=== PATIENT | female | born 1980 | race Caucasian/White ===

== ENCOUNTER → 2017-10-06 16:46 | Outpatient (CLI) | payer OTHER, SELFPAY ==
--- NOTE | 2017-10-06 16:47 | US_ITS ---
STUDY: SOFT TISSUE NECK ULTRASOUND REASON FOR EXAM: Female, 37 years old. Enlarged lymph nodes TECHNIQUE: Ultrasound evaluation of the thyroid was performed with real-time and static doyle-scale imaging. COMPARISON: None. FINDINGS: Multiple lymph nodes are identified in the neck bilaterally. All maintain normal shape and architecture. Of the 3 nodes measured on the right, 2 are within normal limits of size and the third is marginally enlarged with a long axis measurement of 11 mm. Of the 3 nodes measured on the left, all are moderately enlarged , with long axis measurements of 15, 16, and 13 mm. US/Head/Neck Soft Tissue IMPRESSION: Bilateral neck nodes. Marginal enlargement of a single node on the right with moderate enlargement of 3 nodes on the left. However, all visible nodes demonstrate normal shape and architecture. Electronically Signed: Wai Frost MD at 6:26 EDT Tel , Service support ,
== END ==
PROVIDERS: Visit Provider Surgery
DX: R59.0 Localized enlarged lymph nodes (principal)
CPT/HCPCS: 76536

== ENCOUNTER → 2018-01-31 12:03 | Outpatient (CLI) | payer OTHER, SELFPAY ==
[2018-01-31 12:05] LABS: Bacteria 0 SEEN /hpf (None Seen); Mucous, Urine 0 SEEN /hpf (<or=2+); Red Blood Cells-Urine 0 SEEN /hpf (0-5)
[2018-01-31 12:48] LABS: Color, Urine Yellow (Yellow); Glucose, Dipstick Normal (Normal); Ketone-Dipstick Negative (Negative); Leukocyte Esterase-Dipstick 500 /ul (Negative); Nitrite-Dipstick Negative (Negative); Occult Blood-Urine 10 /ul (Negative); Protein-Dipstick Negative (Negative); Specific Gravity, Urine 1.015 (1.002-1.030); Urine Bilirubin Dipstick Negative (Negative); Urine Clarity Clear (Clear); Urine Urobilinogen Normal (Normal)
[2018-01-31 13:01] LABS: Squamous Epithelial Cells - UA 0-5 SEEN /hpf (5-10); White Blood Cells 0-5 SEEN /hpf (0-5)
== END ==
PROVIDERS: Referring Provider Physician Assistant Surgical; Visit Provider Physician Assistant Surgical
DX: R30.0 Dysuria (principal)
CPT/HCPCS: 81001; 87077; 87086; 87088

== ENCOUNTER → 2018-07-25 12:57 | Outpatient (CLI) | payer OTHER, SELFPAY ==
--- NOTE | 2018-07-25 13:02 | BI_ITS ---
MAMMOGRAPHY - BILATERAL SCREENING REASON FOR EXAM: Female, 38 years old. Routine annual screening examination. PERTINENT HISTORY: Non-contributory. TECHNIQUE: Digital bilateral breast mena (3D mammographic acquisition) in the CC and MLO projections. 2-D mediolateral oblique (MLO) and craniocaudad (CC) views of both breasts were obtained. CAD: Full Field Digital Mammography with Computer Added Detection was performed. COMPARISON: None. Baseline examination. FINDINGS: Breast Composition: The breasts are extremely dense, which lowers the sensitivity of mammography. There are no dominant masses or suspicious calcifications. No other significant abnormalities are identified. BI/SCREENING MAMM (CAD), BILAT IMPRESSION: Stable bilateral screening mammogram. Yearly follow-up mammogram recommended. (A) ASSESSMENT CATEGORY: Approximately 10% of breast cancers are not detected by mammography. A normal mammogram should not delay biopsy of a clinically suspicious abnormality. [id number] Electronically Signed: Carlos Babb, at 15:14 EDT , Service support ,
== END ==
PROVIDERS: Referring Provider Obstetrics & Gynecology; Visit Provider Obstetrics & Gynecology
DX: Z12.31 Encounter for screening mammogram for malignant neoplasm of breast (principal)
CPT/HCPCS: 77063; 77067

== ENCOUNTER → 2018-09-02 09:20 | Outpatient (CLI) | payer OTHER, SELFPAY ==
[2018-01-31 09:44] VITALS: BMI 24.2
[2018-09-02 10:29] LABS: Absolute Lymphocyte Count 2.39 X10^3/ul (0.83-4.51); Absolute Neutrophil Count 3.7 X10^3/uL (2.0-7.7); Basophil# 0.02 X10^3/uL; Basophil% 0.3 % (0-1); Eosinophil# 0.06 X10^3/uL; Eosinophils% 0.9 % (0-5); Hematocrit 38.3 % (37-47); Hemoglobin 12.9 g/dl (12.0-15.0); Lymphocyte # 2.39 X10^3/ul (4.0); Lymphocyte % 35.8 % (19-41); Mean Corp Hgb Conc 33.7 g/gl (32-36); Mean Corpuscular Hgb 29.1 pg (27.0-32.0); Mean Corpuscular Volume 86.5 fL (81-99); Mean Platelet Vol. 9.9 fl (6.2-12.0); Monocyte# 0.49 X10^3/uL; Monocyte% 7.3 % (0-10); Neutrophil # 3.71 X10^3/uL (2.7-7.7); Neutrophil % 55.6 % (47-70); Platelet Count 277 K/mm3 (150-450); RBC Distribution Width CV 13.1 % (11.6-14.6); RBC Distribution Width SD 40.5 fl (35.1-43.9); Red Blood Count 4.43 M/mm3 (4.2-5.4); White Blood Count 6.7 K/mm3 (4.4-11.0)
[2018-09-02 10:36] LABS: POSITIVE COUNT NO; POSITIVE DIFFERENTIAL NO; POSITIVE MORPHOLOGY NO
[2018-09-02 10:46] LABS: ALB/GLOB Ratio 1.1 RATIO (0.9-2.4); AST(SGOT) 10 U/L (15-37); Alanine Aminotransfer ALT/SGPT 15 U/L (13-56); Albumin, Serum 3.7 g/dL (3.2-5.0); Alkaline Phosphatase 61 U/L (45-117); Anion Gap 8 (5-15); BUN 10 mg/dL (7-18); BUN/Creat Ratio 14.2 RATIO (10-20); Calcium,Total 8.4 mg/dL (8.5-10.1); Chloride 107 mmol/L (98-107); Cholesterol 188 mg/dL (200); EST Glomerular Filtration Rate 98 mL/min (>60); Est Glom Filt Rate - Afr Amer 118 mL/min (>60); Globulin 3.4 g/dL (2.2-4.2); Glucose 94 mg/dL (74-106); High Density Lipoprotein 61 mg/dL; Potassium 4.4 mmol/L (3.5-5.1); Protein, Total 7.1 g/dL (6.4-8.2); Sodium Level 140 mmol/L (136-145); Thyroid Stim Hormone (TSH) 1.15 uIU/mL (0.358-3.74); Triglycerides 49 mg/dL; Very Low Density Lipoprotein 10 mg/dL (5-40)
[2018-09-04 09:48] LABS: Vitamin D,25 Hydroxy 17.2 ng/mL (29.95-100.01)
== END ==
PROVIDERS: Family Provider Family Medicine; PCP Family Medicine; Referring Provider Family Medicine; Visit Provider Family Medicine
DX: Z00.00 Encounter for general adult medical examination without abnormal findings (principal); R53.83 Other fatigue
CPT/HCPCS: 36415; 80053; 80061; 82306; 84443; 85025

== ENCOUNTER → 2018-11-14 | Outpatient (CLI) | payer OTHER, SELFPAY ==
--- NOTE | 2018-11-14 10:21 | NEURO ---
NCS and/or EMG Patient Report Ordering Doctor: Brigid Phelan DATE OF SERVICE: 11/14/18 This is a left upper extremity EMG and a bilateral upper extremity nerve conduction study performed on this 38-year-old female who reports numbness and tingling in both hands affecting all of her fingers bilaterally worse on the left side. She is right-handed. Symptoms been present for several years, are worse at night, and are improved with wrist splints. She is healthy otherwise without a history of neck pain, or diabetes. Bilateral upper extremity sensory motor nerve conduction studies performed demonstrating mild to moderate prolongation of the median motor distal latencies with preservation of amplitudes however there is mild asymmetry with reduction of amplitudes relatively speaking on the left side. Conduction velocities are intact. The median sensory responses are also mildly delayed but amplitudes are preserved. The ulnar motor and sensory and radial sensory responses are normal. Left upper extremity needle electromyography is performed. Muscles evaluated included the first dorsal osseous, abductor pollicis brevis, brachioradialis, biceps, triceps and deltoid muscles. All muscles demonstrated normal insertional activity with absence of pathologic spontaneous activity. Motor unit potential recruitment pattern and amplitude is normal in all muscles tested. Impression this is an abnormal elective physiologic study consistent with mild carpal tunnel syndrome bilaterally, somewhat worse on the left side. There is no evidence of radiculopathy.
== END | disposition home or self-care (01) ==
LOC: PSN 06:54
PROVIDERS: Family Provider Family Medicine; PCP Family Medicine; Referring Provider Family Medicine; Visit Provider Family Medicine
DX: G56.03 Carpal tunnel syndrome, bilateral upper limbs (principal)
CPT/HCPCS: 95886; 95913

== ENCOUNTER → 2019-07-18 07:58 | Outpatient (CLI) | payer OTHER, SELFPAY ==
[2019-06-18 08:12] VITALS: BMI 24.2
--- NOTE | 2019-07-18 13:22 | NEURO_ITS ---
NCS and/or EMG Patient Report Ordering Doctor: Caio Reece DATE OF SERVICE: 07/18/19 Adeola Klein is a 39 year old female presents for electrodiagnostic testing of the upper limbs. She complains of numbness and tingling in both hands, worse on the left side. Electrodiagnostic findings: Median motor nerve demonstrates normal distal latency, amplitude and conduction velocity bilaterally. Ulnar motor response is normal bilaterally, including conduction across the elbow. Normal median and ulnar F waves. Mildly prolonged median sensory latency at the wrist. Left median sensory responses within normal limits. Normal ulnar and radial sensory responses. On needle EMG, all muscles tested in the upper limbs showed no evidence of denervation with normal motor unit action potentials. Electrodiagnostic assessment: This is an essentially normal study in the upper limbs. 1. There is borderline slowing of right median sensory latency at the wrist. In conjunction with a normal median palmar latency, I would not interpret this as a carpal tunnel syndrome. Her responses on the left side are within normal l imits. There is no electrodiagnostic evidence for left-sided carpal tunnel syndrome. I have gone back and reviewed testing, including the raw data, from November 14, 2018. It is my opinion that these numbers were over read and note both median motor and sensory latencies to be within the normal range. Therefore I would classify this is an essentially normal study and not as a carpal tunnel syndrome. If there are any further questions, please not hesitate to contact me.
== END ==
PROVIDERS: PCP Family Medicine; Referring Provider Orthopaedic Surgery; Visit Provider Orthopaedic Surgery
DX: G56.03 Carpal tunnel syndrome, bilateral upper limbs (principal)
CPT/HCPCS: 95886; 95912

== ENCOUNTER → 2020-02-04 | Outpatient (CLI) | payer OTHER, SELFPAY ==
[2020-02-04 07:53] VITALS: BMI 24.2
[2020-02-04 10:18] LABS: Bacteria 0 SEEN /hpf (None Seen)
[2020-02-04 10:32] LABS: Color, Urine Amber (Yellow); Glucose, Dipstick Normal (Normal); Ketone-Dipstick Negative (Negative); Leukocyte Esterase-Dipstick 100 /ul (Negative); Nitrite-Dipstick Positive (Negative); Occult Blood-Urine 10 /ul (Negative); Protein-Dipstick 30 mg/dl (Negative); Urine Clarity Clear (Clear); Urine Urobilinogen 8 mg/dl (Normal)
[2020-02-04 10:44] LABS: Urine Bilirubin Dipstick 6 mg/dL (Negative)
[2020-02-04 10:47] LABS: Red Blood Cells-Urine 0-5 SEEN /hpf (0-5); White Blood Cells 0-5 SEEN /hpf (0-5)
[2020-02-04 10:48] LABS: Mucous, Urine 3+ /hpf (<or=2+); Squamous Epithelial Cells - UA 25-50 SEEN /hpf (5-10)
== END | disposition home or self-care (01) ==
LOC: LABSPEC 09:53
PROVIDERS: PCP Family Medicine; Visit Provider Physician Assistant Surgical
DX: R30.0 Dysuria (principal)
CPT/HCPCS: 81001; 87086; 87088

== ENCOUNTER 2020-05-06 07:44 | Day surgery (SDC) | payer OTHER, SELFPAY ==
[2020-02-04 07:53] VITALS: BMI 24.2
[2020-05-06] VITALS (8 sets, daily range): BP systolic 115–144; BP diastolic 63–96; PULSE 56–89; RESP 16; TEMP 36–37.2; O2SAT 96–100; BMI 30.7
--- NOTE | 2020-05-06 07:55 | PCM.HP.BLA ---
History and Physical Date of Admission: 05/06/20 Intake Intake Visit Reasons: BILAT HANDS Chief Complaint: Bilateral hand pain Is patient in pain?: Yes Allergies albuterol [From Ventolin HFA] Allergy (Mild, Verified 02/04/20 07:52) unknown Penicillins Allergy (Mild, Verified 02/04/20 07:52) rash Medications cholecalciferol (vitamin D3) 25 mcg (1,000 unit) capsule 25 mcg PO DAILY 02/04/20 [History Confirmed 02/04/20] phenazopyridine 100 mg tablet 100 mg PO TID PRN 02/04/20 [History Confirmed 04/11/20] spironolactone 25 mg tablet 75 mg PO QDAY tab 04/11/20 [History Confirmed 04/11/20] [facility] Medical History (Updated 02/04/20 @ 08:01 by Justin SAWYER, PA) Reactive cervical lymphadenopathy (Acute) Acne (Acute) Enlargement of lymph node (Acute) GERD (gastroesophageal reflux disease) (Acute) Interstitial cystitis (Acute) Surgical History No significant past surgical history (Acute) Family History Mother Diabetes Hypertension Thyroid disorder Social History (Updated 04/11/20 @ 09:[address] Caio Reece DO) Smoking Status: Never smoker alcohol intake: never HPI BILAT HANDS: Details: Parts of this documentation were recorded by a scribe, this documentation accurately reflects the service provided and the decisions made by me, Dr. Caio Reece DO 04/11/20 [id number]. DAVE SAEZ is a 40 year old F here today for bilateral hand pain. Patient states that the injections have helped her but the pain usually returns after two months. Patient states that her last injections were on 10/24/19 in her bilateral ulnar nerves. Patient states that she continues to have numbness and tingling in both hands going into all her fingers especially after driving and while trying to sleep. Patient states that she has a sore ache throughout her arm and shoulder that is worse on the left side. Patient states that her head holder strength has weakened as well. Patient states that she tried the elbow splints but could not sleep with them. Patient states that she is also experiencing an involuntary twitch in her left shoulder. Patient denies any family history of neurological diseases. Patient states that her last EMG was in June. Patient would like to discuss surgical options. To recall patient has symptoms of carpal tunnel cubital tunnel on bilateral upper extremities EMGs were read as negative last June however patient has had provocative maneuvers that increase symptoms at both the wrist and elbows in addition she has had complete resolution of symptoms temporarily when injecting separately carpal tunnel resolution of radial digits and cubital tunnel resolution of ulnar digit symptoms. Of note patient notes a twitch in the left shoulder scapular area that is unexplained Ortho Exam General General: Yes no acute distress Neurologic: Yes alert Psychologic: Yes reasonable and appropriate Left Wrist/Hand WRIST: Full range of motion of wrists with good strength with negative Tinel's but reproduction of symptoms with Eloise's and Phalen'sBilateral wrists left worse than rightGood pulses bilaterally Left Elbow ELBOW: Full range of motion of the elbow without crepitation or deformity there is reproduction of symptoms with hyperflexion and direct compression into the ulnar digits of bilateral elbow left worse than right Supplemental Info 07/18/2019 Electrodiagnostic assessment:Read: This is an essentially normal study in the upper limbs. 1. There is borderline slowing of right median sensory latency at the wrist. In conjunction with a normal median palmar latency, I would not interpret this as a carpal tunnel syndrome. Her responses on the left side are within normal limits. There is no electrodiagnostic evidence for left-sided carpal tunnel syndrome. I have gone back and reviewed testing, including the raw data, from November 14, 2018. It is my opinion that these numbers were over read and note both median motor and sensory latencies to be within the normal range. Therefore I would classify this is an essentially normal study and not as a carpal tunnel syndrome. Assessment & Plan Problems 1. Carpal tunnel syndrome, bilateral G56.03 2. Cubital tunnel syndrome, bilateral G56.23 Plan Educated that the orthopedic Clinical provocative tests are positive for bilateral carpal tunnelAnd cubital tunnel syndrome. I cannot explain her twitching in her left shoulder blade and shoulder and discussed possible referral to neurologist for which she declined at this point. We discussed performing a repeat EMG nerve conduction study to confirm electrodiagnostic evidence of condition and rule out peripheral neuropathy for which she deferred.. Educated that the risk of doing theDecompressive surgerieswith a negative EMG is that the surgery may not relieve the symptoms. Patient would like to go ahead with the surgery for the left side for both elbow and the wrist. Educated that the recovery period depends on whether they have to transpose the nerve on the elbow. If ulnar nerve requires transposition there will be an extended recovery with a period of immobilization and limitations postoperatively. She understands that symptoms may not resolve instantly or may not have relief at all Follow up 2 weeks post-op or sooner if pain, swelling, numbness or associated symptoms, or concerns develop. Coding Level of Care Code Off vis,est,level 3 Diagnoses Carpal tunnel syndrome, bilateral G56.03 Cubital tunnel syndrome, bilateral G56.23 I have re-examined the patient. There are no clinical changes since date of exam Procedure Criteria Procedure Type: Elective COVID Risk Discussion: The surgeon/proceduralist and patient have discussed in detail the risk of exposure to and/or potential harm posed by the COVID-19 virus with having a surgery/procedure at this time versus the risk of delaying the surgery/procedure. It is not possible to know either the risk of delaying the surgery or procedure or chance of getting an infection with perfect accuracy, but a joint decision was made between the patient and the surgeon/proceduralist to proceed at this time with the scheduled surgery/procedure as indicated on the consent form.
[2020-05-06 08:24] LABS: Internal QC Validated? YES +Cl - CLEAR BKGD; Pregnancy, Urine Negative Negative
[2020-05-06] MEDS: Lactated Ringers 1,000 ML 100 ML IV (08:31)
[2020-05-06] MEDS: Cefazolin 2 GM in 0.9% Normal Saline 100 ML IV (08:57)
[2020-05-06] MEDS: Bupiv/Epi 0.5% Mpf 30 ML Vial (09:19)
--- NOTE | 2020-05-06 10:24 | DCINST_ITS ---
Discharge Diet: No Restrictions Additional Instructions: Encourage elbow wrist and finger range of motion immediately. Do not lift push or pull with operative extremity. Leave dressing on clean and dry for 48 hours. Then may remove and begin showering with antibacterial soap. Do not submerge completely as in tub pool or pond for 3 weeks postop. May cover with large Band-Aid to avoid stitch irritation. Follow-up in 2 weeks call with any questions or concerns. There are free and to the suture around the elbow do not pull or cut these. Leave Steri-Strips on Allergies/Adverse Reactions: Allergies albuterol [From Ventolin HFA] Allergy (Mild, Verified 05/06/20 07:58) unknown Penicillins Allergy (Mild, Verified 05/06/20 07:58) rash Medications to take at Discharge cholecalciferol (vitamin D3) 25 mcg (1,000 unit) capsule 25 mcg PO DAILY 02/04/20 phenazopyridine 100 mg tablet 100 mg PO TID PRN 02/04/20 spironolactone 25 mg tablet 75 mg PO QDAY tab 04/11/20 Primary Care Physician: Brigid Phelan MD [Primary Care Provider] - Test Results: Test results from this visit will be discussed in further detail at your follow- up appointment, if applicable. Please Follow Up With: Caio Reece DO - 2 weeks
--- NOTE | 2020-05-06 10:26 | OP.PCM_ITS ---
Report of Operation Date of Procedure: 05/06/20 Description of Surgical Findings:: Preoperative diagnosis; left carpal tunnel and left cubital tunnel Postoperative diagnosis; same Procedure: 1. Left open carpal tunnel release 2. Left ulnar nerve decompression Anesthesia: General Tourniquet time; 35 minutes 250 mm Hg Complications: None Indication for procedure; 40-year-old female with long-standing symptoms consistent with carpal tunnel and cubital tunnel syndrome diagnostic injections at the elbow and wrist provided temporary relief with return of symptoms. Risks benefits and alternatives were reviewed including risks of bleeding infection nerve artery tissue damage need for further surgery and continued pain and symptoms, hypersensitivity to scar and Pillar pain, numbness posterior elbow. Procedure: cubital tunnel : the patient was met in the preoperative holding area the operative extremity was identified by both patient and physician and was marked the patient was met by anesthesia and brought back to the operating room and transferred to the operating table in the supine position. Aanesthesia was started. A well-padded tourniquet was placed on the operative upper extremity. The patient was prepped and draped in the usual sterile fashion. A timeout was called to ensure the proper patient procedure and extremity were being contemplated. An Esmarch was used to exsanguinate the extremity. The tourniquet was inflated to 250 mmHg. First we turned our attention to the elbow made a curvilinear skin incision over the path of the ulnar nerve dissection was carried down as full-thickness flaps with blunt dissection to ensure no injury to medial antebrachial cutaneous nerve branches electrocautery was used . the ulnar nerve was reached the nerve was then identified proximally and careful dissection to free it from the surrounding soft tissue was performed until its distal extent splitting of the 2 heads of the FCU nerve was mobilized and proximally up to the medial intermuscular septum and there was no further constrictions proximally. The release was carried out on the dorsal side of the tunnel and when the elbow was brought through range of motion there was no subluxation appreciated the wound was thoroughly irrigated and closed with 3-0 Vicryl subcutaneous stitches and 3- 0 running monocryl stich. Steri-Strips and Xeroform. Carpal tunnel :A midline incision was made with a 15 blade scalpel between the thenar and hypothenar eminence. This was carried down through the skin and subcutaneous tissue. Mustapha retractors were then used, a deep blade scalpel was used to make a deep incision in the palmar aponeurosis. The mustapha retractors were then placed deep to this and the transverse carpal ligament was identified a perforation was made with a scalpel and a Littler scissors were used to complete the release of the transverse carpal ligament distally under direct visualization with the tips facing ulnarly until the perivascular fat was reached. Then turning our attention proximally using a tension slide technique the proximal extent of the transverse carpal ligament was released . There was noted to be [hourglass configuration to the median nerve and hypertrophy of the transverse carpal ligament without other findings]. The wound was thoroughly irrigated and was closed with 4-0 nylon vertical mattress stitches. Dressing was applied in the form of xeroform 4 x 4, web roll and an chadwick wrap from the hand to the axilla.. Tourniquet was let down there is no intraoperative complications patient tolerated the procedure well and was transferred to the PACU. All counts were correct.
== END 2020-05-06 12:16 | disposition home or self-care (01) ==
LOC: SDC 07:45 → AC 07:46
PROVIDERS: Anesthesiology; PCP Family Medicine; Referring Provider Orthopaedic Surgery; Visit Provider Orthopaedic Surgery
PROC: (CPT 64721; principal; 2020-05-06 09:15)
PROC: (CPT 64718; 2020-05-06 09:15)
DX: G56.02 Carpal tunnel syndrome, left upper limb (principal); G56.22 Lesion of ulnar nerve, left upper limb; K21.9 Gastro-esophageal reflux disease without esophagitis; Z87.891 Personal history of nicotine dependence; Z20.822 Contact with and (suspected) exposure to COVID-19
CPT/HCPCS: 01810; 64718; 64721; 81025; 87426; C9803; J7120; J2405

== ENCOUNTER 2020-09-20 06:49 | Emergency (ER) | payer OTHER, SELFPAY ==
[2020-09-20 06:50] VITALS: BMI 24.2
[2020-09-20 06:52] VITALS: BP 134/86; PULSE 73; RESP 20; TEMP 36.8; O2SAT 98; BMI 29.9
--- NOTE | 2020-09-20 07:06 | CT_ITS ---
STUDY: CT ABDOMEN AND PELVIS WITHOUT CONTRAST REASON FOR EXAM: Female, 40 years old. right flank pain RADIATION DOSAGE (If Supplied By Facility): CTDIvol = ( 12.27 ) mGy, DLP = ( 606.96 ) mGycm TECHNIQUE: Transaxial images were obtained from the dome of the diaphragm to the symphysis pubis without oral contrast, and without intravenous contrast. Sagittal and coronal images were reconstructed. Individualized dose optimization techniques were used for this CT. COMPARISON: None. FINDINGS: The visualized lung bases are unremarkable. The visualized portions of the heart are within normal limits. Normal liver. Normal gallbladder and extrahepatic biliary system. Normal spleen. Normal pancreas. Normal bilateral adrenal glands. 3 mm nonobstructing stone in the midsection the right kidney. No hydronephrosis, ureteral stone, or ureteral dilatation. Normal left kidney. Normal visualized stomach. Normal small intestine. Normal colon. The appendix is visualized and appears normal. Normal abdominal aorta. Normal inferior vena cava. Normal retroperitoneum. Normal urinary bladder. Normal abdominal wall. Normal osseous structures. CT/Abdomen/Pelvis without Cont IMPRESSION: 3 mm nonobstructing right renal stone. Electronically Signed: Keaton Zamora MD at 8:00 EDT Tel , Service support ,
[2020-09-20 07:12] LABS: Red Blood Cells-Urine 0 SEEN /hpf (0-5)
[2020-09-20 07:13] LABS: Color, Urine Yellow (Yellow); Glucose, Dipstick Normal (Normal); Ketone-Dipstick 5 mg/dl (Negative); Leukocyte Esterase-Dipstick 100 /ul (Negative); Nitrite-Dipstick Negative (Negative); Occult Blood-Urine 25 /ul (Negative); Protein-Dipstick 30 mg/dl (Negative); Specific Gravity, Urine 1.025 (1.002-1.030); Urine Bilirubin Dipstick Negative (Negative); Urine Clarity Clear (Clear); Urine Urobilinogen Normal (Normal)
--- NOTE | 2020-09-20 07:15 | EDS_ITS ---
HPI History of Present Illness Chief Complaint: Flank Pain Detail of Chief Complaint: Sudden onset of right-sided back pain this morning Informant: patient Onset/Context/Timing Maximum Severity: 8/10 Worsened by: Lying flat or bending forward Associated Symptoms Associated Symptoms: Nausea Narrative Narrative: Patient states that she was awoken by sudden onset of right-sided back pain this morning. Patient describes the pain at times radiating into her right buttock and down her right leg. She denies abdominal pain. Currently rates her pain an 8 out of 10 after taking Motrin this morning. Patient has had some nausea but no vomiting. She denies urinary symptoms. She is never had pain like this before. 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 Patient denies fevers or recent illness. She denies abdominal pain. Patient with remote history of interstitial cystitis but states she is not having a flareup. Prior similar symptoms: No PFSH PFSH Medical History (Updated 09/20/20 @ 08:[address] Kandice Henson DO) Acne Enlargement of lymph node GERD (gastroesophageal reflux disease) Interstitial cystitis Reactive cervical lymphadenopathy Home Medications cholecalciferol (vitamin D3) 25 mcg (1,000 unit) capsule 25 mcg PO DAILY 02/04/20 [History Last Taken Unknown] phenazopyridine 100 mg tablet 100 mg PO TID PRN 02/04/20 [History Last Taken Unknown] cyclobenzaprine 10 mg PO TID PRN #20 tablet 09/20/20 [Rx Last Taken Unknown] hydrocodone-acetaminophen 1 tab PO Q4H PRN PRN 3 Days #14 tablet 09/20/20 [Rx L ast Taken Unknown] naproxen 500 mg PO BID #14 tab 09/20/20 [Rx Last Taken Unknown] Allergy/AdvReac Type Severity Reaction Status Date / Time albuterol [From Ventolin HFA] Allergy Mild unknown Verified 09/20/20 06:50 Penicillins Allergy Mild rash Verified 09/20/20 06:50 Family History Mother Diabetes Hypertension Thyroid disorder Surgical History (Updated 09/20/20 @ 06:51 by Osman Eng) History of carpal tunnel surgery of left wrist No significant past surgical history Social History (Updated 05/19/20 @ 10:[address] Caio Reece DO) Smoking Status: Former smoker alcohol intake: never ROS ROS ED Constitutional Constitutional ED: Reports systems reviewed and no addt'l complaints, except as documented; Denies body ache(s), change in weight or chills Eyes Eyes: Denies acute decrease in peripheral vision, change in vision, double vision or loss of vision ENT ENT ED: Reports none; Denies ear pain, lip swelling, loss taste/smell, neck pain, otalgia or sore throat Cardiovascular Cardiovascular: Reports none; Denies abdominal pain, chest pain with activity, leg edema, lightheadedness, palpitations, rapid heart rate or syncope Respiratory/Chest Respiratory/Chest: Reports none; Denies change in mental status, dry cough, dyspnea, hemoptysis, shortness of breath at rest or shortness of breath with exertion Gastrointestinal Gastrointestinal: Reports none; Denies abdominal pain, change in stool character, diarrhea, hematemesis, hematochezia, melena, rectal bleeding or vomit ing Genitourinary Genitourinary ED: Reports none; Denies abdominal discomfort, anuria, dysuria, genital pain or polyuria Musculoskeletal Musculoskeletal: Reports none and back pain; Denies arthralgias, difficulty walking, extremity pain, muscle weakness or myalgias Integumentary Reports none; Denies abscess or rash Neurologic Neurologic: Reports none; Denies abnormal gait, confusion, focal weakness, frequent falls, headache(s), loss of vision, numbness, paresthesias, radicular pain, vertigo or weakness Psychiatric Psychiatric: Reports systems reviewed and no addt'l complaints, except as documented and none; Denies behavioral changes, confusion, difficulty concentrating, hallucinations, suicidal ideation, tactile hallucinations or visual hallucinations Endocrine Endocrinology: Denies none, cold intolerance, excessive sweating, fatigue or heat intolerance Hematologic/Lymphatic Hematologic/Lymphatic: Reports none; Denies anemia, easy bleeding or easy bruising Allergic/Immunologic Allergic/Immunologic ED: Denies as per HPI, none, lip swelling, mouth swelling, throat swelling, tongue swelling or hives EXAM Physical Exam Const Vital Signs: 09/20/20 06:52 Temperature 98.2 F Temperature Source Oral Pulse Rate 73 Respiratory Rate 20 H Blood Pressure 134/86 H Blood Pressure Mean 102 Pulse Ox 98 Oxygen Delivery Method Room Air Positive well nourished and well developed General Appearance ED: well developed and NAD HEENT Reports TM's clear and moist mucous membranes normocephalic and atraumatic; Negative for trauma or tenderness Tympanic Membrane ED: Yes TM's clear Eyes PERRL and EOMs intact bilaterally General Eye ED: Negative for pale conjunctiva or scleral icterus Neck no lymphadenopathy, supple and no JVD General: Negative for tenderness Chest Wall inspection of chest normal and palpation of chest normal Chest: Negative for tenderness Resp normal respiratory effort and clear to auscultation bilaterally Effort and Inspection: Negative for respiratory distress or pain with movement Auscultation: Negative for rhonchi, wheezes or diminished lung sounds Cardio regular rate, regular rhythm, S1 normal heart sound, S2 normal heart sound and no murmurs Peripheral Pulses: pulses 2+ throughout GI normal to inspection, nondistended, normoactive bowel sounds, soft to palpation, non-tender, non-distended and no masses Back/Spine no CVA tenderness and no thoracic nor lumbar tenderness Back/Spine Narrative: Unable to reproduce patient's pain with palpation of her back. She has no tenderness over the thoracic or lumbar spine. Patient has negative straight leg raises. Deep tendon reflexes are plus 2 out of 4 bilaterally at the patella and Achilles. Patient has normal 5 extension bilaterally. Patient has normal sensation to light touch. Extremity normal to inspection General Extremety ED: Negative for edema General Extremity: Negative for edema Neuro oriented x3, CN's II-XII intact bilaterally, no sensory deficits noted and gait normal Sensorium / Orientation: awake, alert, oriented to person, oriented to place and oriented to time Motor Exam: strength 5/5 throughout and strength abnormal Psych mental status grossly normal Skin no rashes or lesions noted and no wounds MDM MDM MDM Narrative Medical decision making narrative: Initially patient did not want thing for pain. Subsequently she did ask for something and was given morphine and Zofran as well as Flexeril. At this point I suspect likely musculoskeletal etiology of her back pain. Patient will be given a prescription for [place], Flexeril, and naproxen. She is advised to follow-up with her primary care physician in 3 to 5 days. Patient advised to return if worsening pain, weakness in extremities, change in bowel or bladder function, or condition should worsen anyway. Lab Data Attestation: I reviewed the patient's lab results. Labs: Laboratory Results - last 24 hr 09/20/20 09/20/20 09/20/20 07:00 07:18 07:18 WBC 9.8 RBC 4.82 Hgb 13.9 Hct 43.0 MCV 89.2 MCH 28.8 MCHC 32.3 RDW Std Deviation 40.4 RDW Coeff of Xochilt 12.3 Plt Count 322 MPV 9.5 Immature Gran % (Auto) 0.300 Neut % (Auto) 66.0 Lymph % (Auto) 26.4 [place] % (Auto) 5.9 Eos % (Auto) 0.9 Baso % (Auto) 0.5 Absolute Neuts (auto) 6.4 Absolute Lymphs (auto) 2.57 Nucleated RBC % 0 Sodium 138 Potassium 3.7 Chloride 106 Carbon Dioxide 27.0 Anion Gap 5 BUN 12 Creatinine 0.77 Estim Creat Clear Calc 85.64 Est GFR (MDRD) Af Amer 106 Est GFR (MDRD) Non-Af 87 BUN/Creatinine Ratio 15.6 Glucose 107 H Calcium 8.8 Serum , Qual Urine Color Yellow Urine Clarity Clear Urine pH 5.0 Ur Specific [place] 1.025 Urine Protein 30 H Urine Glucose (UA) Normal Urine Ketones 5 H Urine Occult Blood 25 H Urine Nitrite Negative Urine Bilirubin Negative Urine Urobilinogen Normal Ur Leukocyte Esterase 100 H Urine RBC 0 SEEN Urine WBC 0-5 SEEN Ur Squamous Epith Cells 5-10 SEEN Urine Bacteria 4+ Hyaline Casts 0-5 SEEN Urine Mucus 3+ 09/20/20 07:18 WBC RBC Hgb Hct MCV MCH MCHC RDW Std Deviation RDW Coeff of Xochilt Plt Count MPV Immature Gran % (Auto) Neut % (Auto) Lymph % (Auto) [place] % (Auto) Eos % (Auto) Baso % (Auto) Absolute Neuts (auto) Absolute Lymphs (auto) Nucleated RBC % Sodium Potassium Chloride Carbon Dioxide Anion Gap BUN Creatinine Estim Creat Clear Calc Est GFR (MDRD) Af Amer Est GFR (MDRD) Non-Af BUN/Creatinine Ratio Glucose Calcium Serum , Qual NEGATIVE Urine Color Urine Clarity Urine pH Ur Specific [place] Urine Protein Urine Glucose (UA) Urine Ketones Urine Occult Blood Urine Nitrite Urine Bilirubin Urine Urobilinogen Ur Leukocyte Esterase Urine RBC Urine WBC Ur Squamous Epith Cells Urine Bacteria Hyaline Casts Urine Mucus Radiography Diagnostic Testing: Radiology Impression Abdomen/Pelvis CT 09/20/20 07:06 IMPRESSION: 3 mm nonobstructing right renal stone. Electronically Signed: Keaton Zamora MD at 8:00 EDT Tel , Service support , Discharge Plan Triage Chief Complaint: Flank Pain ED Provider: Kandice Henson Dx/Rx/DC Orders Clinical Impression: Back pain Instructions: ED Back Pain (Acute or Chronic) Prescriptions: New cyclobenzaprine [cyclobenzaprine] 10 MG tablet 10 mg PO TID PRN (Reason: Muscle Spasm) Qty: 20 RF: 0 hydrocodone-acetaminophen [hydrocodone-acetaminophen] 1 TABLET tablet 1 tab PO Q4H PRN PRN (Reason: Pain) 3 Days Qty: 14 RF: 0 naproxen 500 MG tablet 500 mg PO BID Qty: 14 RF: 0 No Action cholecalciferol (vitamin D3) 25 mcg (1,000 unit) capsule 25 mcg PO DAILY RF: 0 phenazopyridine [Pyridium] 100 mg tablet 100 mg PO TID PRN (Reason: Bladder Spasm) RF: 0 Primary Care Provider: Brigid Phelan Referrals: Brigid Phelan MD [Primary Care Provider] - 3-5 Days Disposition Disposition: Home, self care
[2020-09-20 07:20] LABS: Bacteria 4+ /hpf (None Seen); Hyaline Cast 0-5 SEEN /lpf (0-5); Mucous, Urine 3+ /hpf (<or=2+); Squamous Epithelial Cells - UA 5-10 SEEN /hpf (5-10); White Blood Cells 0-5 SEEN /hpf (0-5)
[2020-09-20 07:23] LABS: Absolute Lymphocyte Count 2.57 X10^3/uL (0.83-4.51); Absolute Neutrophil Count 6.4 X10^3/uL (2.0-7.7); Basophil# 0.05 X10^3/uL; Basophil% 0.5 % (0-1); Eosinophil# 0.09 X10^3/uL; Eosinophils% 0.9 % (0-5); Hemoglobin 13.9 g/dL (12.0-15.0); Lymphocyte # 2.57 X10^3/ul (0.83-4.51); Lymphocyte % 26.4 % (19-41); Mean Corp Hgb Conc 32.3 g/dL (32-36); Mean Corpuscular Hgb 28.8 pg (27.0-32.0); Mean Corpuscular Volume 89.2 fL (81-99); Mean Platelet Vol. 9.5 fl (6.2-12.0); Monocyte# 0.58 X10^3/uL; Monocyte% 5.9 % (0-10); NRBC Flagged by Analyzer 0 % (0-5); Neutrophil # 6.43 X10^3/uL (2.7-7.7); Platelet Count 322 K/mm3 (150-450); RBC Distribution Width CV 12.3 % (11.6-14.6); RBC Distribution Width SD 40.4 fl (35.1-43.9); Red Blood Count 4.82 M/mm3 (4.2-5.4); White Blood Count 9.8 K/mm3 (4.4-11.0)
[2020-09-20 07:39] LABS: Internal QC Validated? YES +Cl - CLEAR BKGD; Pregnancy, Serum, hCG Quali. NEGATIVE Negative
[2020-09-20 07:41] LABS: Anion Gap 5 (5-15); BUN 12 mg/dL (7-18); BUN/Creat Ratio 15.6 RATIO (10-20); Calcium,Total 8.8 mg/dL (8.5-10.1); Chloride 106 mmol/L (98-107); Creatinine, Serum 0.77 mg/dL (0.55-1.02); EST Glomerular Filtration Rate 87 mL/min (>60); Est Glom Filt Rate - Afr Amer 106 mL/min (>60); Estimated Creatinine Clearance 85.64 ml/min; Glucose 107 mg/dL (74-106); Potassium 3.7 mmol/L (3.5-5.1); Sodium Level 138 mmol/L (136-145)
[2020-09-20] MEDS: 0.9% Normal Saline 1,000 ML 1000 ML IV (07:53)
[2020-09-20] MEDS: Ondansetron 4 MG/2 ML Vial IV (08:04)
[2020-09-20] MEDS: Morphine 4 MG/ML Syringe IV (08:04)
[2020-09-20] MEDS: cycloBENZAPRine HCl 10 MG Tablet PO (08:04)
[2020-09-20 08:26] VITALS: BP 132/84; PULSE 72; RESP 16; O2SAT 98
== END 2020-09-20 08:29 | disposition home or self-care (01) ==
PROVIDERS: Emergency Provider Emergency Medicine; PCP Family Medicine
DX: M54.9 Dorsalgia, unspecified (principal); K21.9 Gastro-esophageal reflux disease without esophagitis; Z87.891 Personal history of nicotine dependence
CPT/HCPCS: 74176; 80048; 81001; 84703; 85025; 96361; 96374; 96375; 99284; J7030; A4216; J2405

== ENCOUNTER → 2021-01-27 08:57 | Outpatient (CLI) | payer OTHER, SELFPAY ==
--- NOTE | 2021-01-27 09:15 | RAD_ITS ---
STUDY: X-RAY - LUMBAR SPINE REASON FOR EXAM: Female, 40 years old. Chronic back pain. TECHNIQUE: 5 view(s) of the lumbar spine were obtained. COMPARISON: None FINDINGS: Normal lumbar lordosis. There is no substantial scoliosis. 4 mm of anterolisthesis of L3 on L4. Mild diffuse facet sclerosis. Normal vertebral bodies and endplates. Normal disc space heights. 3 mm in diameter calcification projected over the midpole of the right kidney. Vascular calcification. RAD/L/S Spine Min 4 Views IMPRESSION: Mild diffuse lumbosacral spondylosis as described. Electronically Signed: Salazar Blunt MD at 10:53 EDT , Service support ,
== END ==
PROVIDERS: PCP Family Medicine; Referring Provider Family Medicine; Visit Provider Family Medicine
DX: M54.50 Low back pain, unspecified (principal)
CPT/HCPCS: 72110

== ENCOUNTER → 2021-01-29 11:23 | Outpatient (CLI) | payer OTHER, SELFPAY ==
--- NOTE | 2021-01-29 11:25 | BI_ITS ---
MAMMOGRAPHY - BILATERAL SCREENING 3-D TOMOSYNTHESIS REASON FOR EXAM: Female, 40 years old. Z12.31 SCREENING PERTINENT HISTORY: No significant family history. TECHNIQUE: 2-D mammograms and 3-D Tomosynthesis of the breast (s) were performed. CAD was performed. COMPARISON: 07/25/2018 FINDINGS: The breast composition is Extermely dense tissue. Scattered benign calcifications are seen. No dense spiculated masses or suspicious microcalcifications are identified. No architectural distortion is identified. There is no skin thickening or retraction. There has been no significant change since the prior study. BI/SCRN MAMM (CAD)W/ERICK BILAT IMPRESSION: No mammographic signs of malignancy. Routine yearly mammograms recommended. ASSESSMENT CATEGORY: BIRADS Category 1: Negative. A letter regarding these results will be sent to the patient by the facility within 30 days. FOLLOW UP RECOMMENDATION: Yearly follow up mammogram recommended. (A) Approximately 10% of breast cancers are not detected by mammography. A normal mammogram should not delay biopsy of a clinically suspicious abnormality. Electronically Signed: Keaton Zamora MD at 12:23 EDT Tel , Service support ,
== END ==
PROVIDERS: PCP Family Medicine; Referring Provider Nurse Practitioner Family; Visit Provider Nurse Practitioner Family
DX: Z12.31 Encounter for screening mammogram for malignant neoplasm of breast (principal)
CPT/HCPCS: 77063; 77067

== ENCOUNTER 2022-01-27 12:26 | Emergency (ER) | payer OTHER, SELFPAY ==
[2022-01-27] VITALS (8 sets, daily range): BP systolic 128–162; BP diastolic 83–104; PULSE 64–97; RESP 14–18; TEMP 36.8; O2SAT 95–100; BMI 29.8
[2022-01-27 13:12] LABS: Absolute Lymphocyte Count 4.36 X10^3/uL (0.83-4.51); Absolute Neutrophil Count 6.3 X10^3/uL (2.0-7.7); Basophil# 0.08 X10^3/uL; Basophil% 0.7 % (0-1); Eosinophil# 0.43 X10^3/uL; Eosinophils% 3.6 % (0-5); Hematocrit 40.3 % (37-47); Hemoglobin 13.4 g/dL (12.0-15.0); Lymphocyte # 4.36 X10^3/ul (0.83-4.51); Mean Corp Hgb Conc 33.3 g/dL (32-36); Mean Corpuscular Hgb 29.8 pg (27.0-32.0); Mean Corpuscular Volume 89.8 fL (81-99); Mean Platelet Vol. 9.5 fl (6.2-12.0); Monocyte# 0.63 X10^3/uL; Monocyte% 5.3 % (0-10); NRBC Flagged by Analyzer 0 % (0-5); Neutrophil # 6.26 X10^3/uL (2.7-7.7); Neutrophil % 53.1 % (47-70); Platelet Count 324 K/mm3 (150-450); RBC Distribution Width CV 12.7 % (11.6-14.6); RBC Distribution Width SD 41.7 fl (35.1-43.9); Red Blood Count 4.49 M/mm3 (4.2-5.4); White Blood Count 11.8 K/mm3 (4.4-11.0)
--- NOTE | 2022-01-27 13:15 | RAD_ITS ---
EXAM: XR CHEST, 1 VIEW CLINICAL INDICATION: chest pain TECHNIQUE: Frontal view of the chest. This report was created using [employer] report generation technology. COMPARISON: None. FINDINGS: LUNGS AND PLEURAL SPACES: Unremarkable. No consolidation or edema. No pneumothorax. No effusion. HEART: Unremarkable. Cardiac silhouette not enlarged. MEDIASTINUM: Central airways and mediastinal contour are unremarkable. BONES/JOINTS: Unremarkable. SOFT TISSUES: Unremarkable. RAD/Chest 1 View (Portable) IMPRESSION: No radiographic evidence of acute cardiopulmonary disease. Electronically Signed: Dayton Harris MD at 13:32 EDT ,
--- NOTE | 2022-01-27 13:27 | EDS_ITS ---
HPI History of Present Illness Chief Complaint: Chest Pain Narrative Narrative: 41-year-old female presenting with chest pain. She states it is a slight squeezing its in her left upper chest. She states this has been ongoing for 2 days. The sensation lasts about a minute and then goes away. It seems to be occurring more frequently for her. She is not having lightheadedness, dizziness, nausea, diaphoresis. She is not short of breath. She still had a fever, chills, cough. She states she is eating and drinking normally. She states she does not have any significant medical problems except for history of asthma which is controlled and some back problems. Patient states she does not have a family history of early heart disease. She has no risk factors for DVT/PE and no history. PFSH PFSH Medical History Acne Enlargement of lymph node GERD (gastroesophageal reflux disease) Interstitial cystitis Reactive cervical lymphadenopathy Home Medications cholecalciferol (vitamin D3) 25 mcg (1,000 unit) capsule 25 mcg PO DAILY 02/04/20 [History Last Taken Unknown] phenazopyridine 100 mg tablet (Pyridium) 100 mg PO TID PRN Bladder Spasm 02/04/20 [History Last Taken Unknown] Allergy/AdvReac Type Severity Reaction Status Date / Time albuterol [From Ventolin HFA] Allergy Mild unknown Verified 01/27/22 12:32 Penicillins Allergy Mild rash Verified 01/27/22 12:32 Family History Mother Diabetes Hypertension Thyroid disorder Surgical History History of carpal tunnel surgery of left wrist No significant past surgical history Social History Smoking Status: Former smoker alcohol intake: never ROS ROS ED Constitutional Constitutional ED: Denies chills or fever(s) Eyes Eyes: Denies blurry vision ENT ENT ED: Denies rhinorrhea or sore throat Cardiovascular Cardiovascular: Reports as per HPI Respiratory/Chest Respiratory/Chest: Denies cough or dyspnea Gastrointestinal Gastrointestinal: Denies abdominal pain or constipation Genitourinary Genitourinary ED: Denies dysuria or hematuria Musculoskeletal Musculoskeletal: Denies arthralgias or back pain Integumentary Denies abscess or Abrasions Neurologic Neurologic: Denies headache(s) or paresthesias Psychiatric Psychiatric: Denies anxiety or depression EXAM Physical Exam Const Vital Signs: 01/27/22 12:27 01/27/22 12:30 01/27/22 12:30 Temperature 98.2 F 98.2 F Temperature Source Oral Oral Pulse Rate 97 97 Respiratory Rate 16 16 Respiratory Effort Normal Non-Labored Blood Pressure 162/104 H 162/104 H Blood Pressure Mean 123 123 Pulse Ox 100 100 Oxygen Delivery Method Room Air Room Air 01/27/22 12:58 01/27/22 13:39 Temperature Temperature Source Pulse Rate 74 Respiratory Rate 14 Respiratory Effort Blood Pressure 149/83 H Blood Pressure Mean 105 Pulse Ox 98 99 Oxygen Delivery Method Room Air Room Air Positive well nourished General Appearance ED: NAD; Negative for pallor HEENT Reports moist mucous membranes normocephalic and atraumatic Eyes PERRL and EOMs intact bilaterally Neck no lymphadenopathy Chest Wall inspection of chest normal and palpation of chest normal Resp normal respiratory effort and clear to auscultation bilaterally Auscultation: Negative for rales, rhonchi or wheezes Cardio regular rate and regular rhythm Extremity normal to inspection General Extremety ED: Negative for edema or tenderness General Extremity: Negative for edema Neuro oriented x3 and CN's II-XII intact bilaterally Sensorium / Orientation: awake and alert Motor Exam: strength 5/5 throughout Psych mental status grossly normal Skin no rashes or lesions noted General Skin Exam: Negative for jaundice or pallor Heart Score History: Slightly/Non-Suspicious ECG: Normal Age: </= 45 years Risk Factors: No Risk Factors Troponin: </= Normal Limit Score: 0 MDM MDM MDM Narrative Medical decision making narrative: Patient presenting with intermittent chest tightness. She states it feels like squeezing. Last about a minute. She has no cardiac history. EKG obtained on arrival and on my interpretation shows normal sinus rhythm with a ventricular rate of 70 bpm without sign of ischemic change or dysrhythmia. Chest x-ray on my interpretation shows no acute cardiopulmonary process and the radiologist does agree. CBC shows a slight leukocytosis of 11.8 however the rest of her CBC is normal. Renal function electrolytes normal. High-sensitivity troponin is 3. Patient is PERC negative. High-sensitivity troponin at 2 hours is 3 and the refore unchanged. HEART score is 0. Given her ultimately negative work-up I feel she stable to be discharged home. I counseled her she does need follow-up with her PCP to ensure resolution of the symptoms. Return precautions were discussed. Impression: 1. Chest pain Lab Data Attestation: I reviewed the patient's lab results. Labs: Laboratory Results - last 24 hr 01/27/22 01/27/22 01/27/22 12:30 12:30 15:32 WBC 11.8 H RBC 4.49 Hgb 13.4 Hct 40.3 MCV 89.8 MCH 29.8 MCHC 33.3 RDW Std Deviation 41.7 RDW Coeff of Xochilt 12.7 Plt Count 324 MPV 9.5 Immature Gran % (Auto) 0.300 Neut % (Auto) 53.1 Lymph % (Auto) 37.0 [place] % (Auto) 5.3 Eos % (Auto) 3.6 Baso % (Auto) 0.7 Absolute Neuts (auto) 6.3 Absolute Lymphs (auto) 4.36 Nucleated RBC % 0 Sodium 139 Potassium 3.6 Chloride 107 Carbon Dioxide 26.0 Anion Gap 6 BUN 15 Creatinine 0.76 Estim Creat Clear Calc 99.75 Est GFR (MDRD) Af Amer 106 Est GFR (MDRD) Non-Af 88 BUN/Creatinine Ratio 19.7 Glucose 101 Calcium 9.1 Troponin I High Sens 3 3 Radiography Diagnostic Testing: Clinical Impression(s) from Imaging Studies Chest X-Ray 01/27/22 13:15 IMPRESSION: No radiographic evidence of acute cardiopulmonary disease. Electronically Signed: Dayton Harris MD at 13:32 EDT , Discharge Plan Triage Chief Complaint: Chest Pain ED Provider: Eliot Orozco Dx/Rx/DC Orders Prescriptions: No Action cholecalciferol (vitamin D3) 25 mcg (1,000 unit) capsule 25 mcg PO DAILY phenazopyridine [Pyridium] 100 mg tablet 100 mg PO TID PRN (Reason: Bladder Spasm) Primary Care Provider: Brigid Phelan Referrals: Brigid Phelan MD [Primary Care Provider] -
[2022-01-27 13:32] LABS: Anion Gap 6 (5-15); BUN 15 mg/dL (7-18); BUN/Creat Ratio 19.7 RATIO (10-20); Calcium,Total 9.1 mg/dL (8.5-10.1); Chloride 107 mmol/L (98-107); Creatinine, Serum 0.76 mg/dL (0.55-1.02); EST Glomerular Filtration Rate 88 mL/min (>60); Est Glom Filt Rate - Afr Amer 106 mL/min (>60); Estimated Creatinine Clearance 99.75 ml/min; Glucose 101 mg/dL (74-106); Potassium 3.6 mmol/L (3.5-5.1); Sodium Level 139 mmol/L (136-145); Troponin-I HS (w/2H Reflex) 3 pg/mL (3.0-54.0)
[2022-01-27 15:09] LABS: Reflex Troponin-HS? (from REC) Y
[2022-01-27 15:58] LABS: Troponin-I HS 3 pg/mL (3.0-54.0)
== END 2022-01-27 16:12 | disposition home or self-care (01) ==
PROVIDERS: Emergency Provider Student in an Organized Health Care Education/Training Program; PCP Family Medicine; Visit Provider Student in an Organized Health Care Education/Training Program
DX: R07.9 Chest pain, unspecified (principal); R50.9 Fever, unspecified; Z87.891 Personal history of nicotine dependence
CPT/HCPCS: 71045; 80048; 84484; 85025; 93005; 99284; A4216

== ENCOUNTER → 2022-02-18 | Outpatient (CLI) | payer OTHER, SELFPAY ==
[2022-02-18 08:57] LABS: Absolute Lymphocyte Count 2.46 X10^3/uL (0.83-4.51); Absolute Neutrophil Count 3.9 X10^3/uL (2.0-7.7); Basophil# 0.07 X10^3/uL; Basophil% 0.9 % (0-1); Eosinophil# 0.63 X10^3/uL; Eosinophils% 8.3 % (0-5); Hematocrit 38.6 % (37-47); Hemoglobin 12.9 g/dL (12.0-15.0); Lymphocyte # 2.46 X10^3/ul (0.83-4.51); Lymphocyte % 32.2 % (19-41); Mean Corp Hgb Conc 33.4 g/dL (32-36); Mean Corpuscular Hgb 29.9 pg (27.0-32.0); Mean Corpuscular Volume 89.4 fL (81-99); Mean Platelet Vol. 9.5 fl (6.2-12.0); Monocyte# 0.56 X10^3/uL; Monocyte% 7.3 % (0-10); NRBC Flagged by Analyzer 0 % (0-5); Neutrophil % 51.2 % (47-70); Platelet Count 300 K/mm3 (150-450); RBC Distribution Width CV 12.7 % (11.6-14.6); RBC Distribution Width SD 41.6 fl (35.1-43.9); Red Blood Count 4.32 M/mm3 (4.2-5.4); White Blood Count 7.6 K/mm3 (4.4-11.0)
[2022-02-18 09:41] LABS: ALB/GLOB Ratio 1.1 RATIO (0.9-2.4); AST(SGOT) 12 U/L (15-37); Alanine Aminotransfer ALT/SGPT 21 U/L (13-56); Albumin, Serum 3.7 g/dL (3.2-5.0); Alkaline Phosphatase 56 U/L (45-117); Anion Gap 4 (5-15); BUN 9 mg/dL (7-18); BUN/Creat Ratio 13.4 RATIO (10-20); Calcium,Total 8.7 mg/dL (8.5-10.1); Chloride 108 mmol/L (98-107); Cholesterol 219 mg/dL (200); Creatinine, Serum 0.67 mg/dL (0.55-1.02); EST Glomerular Filtration Rate 101 mL/min (>60); Est Glom Filt Rate - Afr Amer 122 mL/min (>60); Globulin 3.3 g/dL (2.2-4.2); Glucose 104 mg/dL (74-106); High Density Lipoprotein 68 mg/dL; Potassium 3.9 mmol/L (3.5-5.1); Sodium Level 141 mmol/L (136-145); Thyroid Stim Hormone (TSH) 1.29 uIU/mL (0.358-3.74); Triglycerides 65 mg/dL; Very Low Density Lipoprotein 13 mg/dL (5-40)
== END | disposition home or self-care (01) ==
LOC: LAB 07:36
PROVIDERS: PCP Family Medicine; Referring Provider Family Medicine; Visit Provider Family Medicine
DX: Z00.00 Encounter for general adult medical examination without abnormal findings (principal); R63.5 Abnormal weight gain; R07.9 Chest pain, unspecified; E55.9 Vitamin D deficiency, unspecified
CPT/HCPCS: 36415; 80053; 80061; 82306; 84443; 85025

== ENCOUNTER → 2022-03-01 | Outpatient (CLI) | payer OTHER, SELFPAY ==
--- NOTE | 2022-03-01 15:46 | BI_ITS ---
MAMMOGRAPHY - BILATERAL SCREENING REASON FOR EXAM: Female, 41 years old. Routine annual screening examination. PERTINENT HISTORY: Non-contributory. TECHNIQUE: Digital bilateral breast erick (3D mammographic acquisition) in the CC and MLO projections. 2-D mediolateral oblique (MLO) and craniocaudad (CC) views of both breasts were obtained. CAD: Full Field Digital Mammography with Computer Added Detection was performed. COMPARISON: Comparison is made with prior examination dated 01/29/2021 and 07/25/2018. FINDINGS: Breast Composition: The breasts are extremely dense, which lowers the sensitivity of mammography. There are no dominant masses or suspicious calcifications. Stable small benign-appearing bilateral axillary lymph nodes. No other significant abnormalities are identified. There has been no significant change since the prior study. BI/SCRN MAMM (CAD)W/ERICK BILAT IMPRESSION: Stable bilateral screening mammogram. Yearly follow-up mammogram recommended. (A) ASSESSMENT CATEGORY: BIRADS Category 2: Benign. A letter regarding these results will be sent to the patient by the facility within 30 days. Approximately 10% of breast cancers are not detected by mammography. A normal mammogram should not delay biopsy of a clinically suspicious abnormality. [id number] Electronically Signed: Carlos Babb MD at 8:20 EST ,
== END | disposition home or self-care (01) ==
PROVIDERS: PCP Family Medicine; Referring Provider Obstetrics & Gynecology; Visit Provider Obstetrics & Gynecology
DX: Z12.31 Encounter for screening mammogram for malignant neoplasm of breast (principal)
CPT/HCPCS: 77063; 77067

== ENCOUNTER → 2022-03-12 | Outpatient (CLI) | payer OTHER, SELFPAY ==
--- NOTE | 2022-03-12 09:48 | STRESSREP_ITS ---
Stress Test Report Date: 03-12-2020 Procedure: Exercise tolerance test Indications: Chest pain Consent: Per the patient Procedure: The patient exercised on a Gary protocol for 12 minutes completing Stage IV achieving a peak heart rate of 162 bpm (91% predicted maximal heart rate) with a resting blood pressure of 138/70 mmHg and a peak blood pressure 170/68 mmHg and a peak MET capacity of approximately 13 MET's. The baseline ECG demonstrated normal sinus rhythm. The peak exercise ECG demonstrated no obvious ECG changes. There were no cardiac dysrhythmias pretest, during exercise, or recovery. The functional capacity was considered good. The patient had no complaint of chest discomfort during exercise or recovery. The examination was discontinued secondary to dyspnea. Impression: 1. Technically adequate (percent predicted maximal heart rate greater than 85%) exercise tolerance test 2. Peak exercise ECG with no obvious ECG change 3. There were no cardiac dysrhythmias during exercise or recovery This note was generated with [employer] software. It may contain incorrect words, spelling, and punctuation that were not noted in checking the note before signing.
== END | disposition home or self-care (01) ==
PROVIDERS: PCP Family Medicine; Visit Provider Family Medicine
DX: R07.9 Chest pain, unspecified (principal)
CPT/HCPCS: 93017

== ENCOUNTER → 2022-04-28 | Outpatient (CLI) | payer OTHER, SELFPAY ==
--- NOTE | 2022-04-28 15:35 | RAD_ITS ---
STUDY: X-RAY - LUMBAR SPINE REASON FOR EXAM: Female, 42 years old. BACK PAIN TECHNIQUE: XR Spine Lumbar Min 4 Views COMPARISON: 01.27.21 FINDINGS: Normal lumbar lordosis. There is a levoscoliosis of the lumbar spine. There is a Grade 1 anterolisthesis of L3 on L4. There are atherosclerotic vascular calcifications. Normal vertebral bodies and endplates. Normal disc space heights. The soft tissue structures are unremarkable. RAD/L/S Spine Min 4 Views IMPRESSION: There is a Grade 1 anterolisthesis of L3 on L4. Electronically Signed: Matias Fu MD at 19:07 EST ,
== END | disposition home or self-care (01) ==
LOC: RAD 15:26
PROVIDERS: PCP Family Medicine; Referring Provider Family Medicine; Visit Provider Family Medicine
DX: M47.816 Spondylosis without myelopathy or radiculopathy, lumbar region (principal)
CPT/HCPCS: 72110

== ENCOUNTER → 2022-06-09 | Outpatient (CLI) | payer OTHER, SELFPAY ==
--- NOTE | 2022-06-09 07:15 | MRI_ITS ---
PROCEDURE: MRI LUMBAR SPINE WITHOUT CONTRAST REASON FOR EXAM: Female, 42 years old. degenerative spondylolisthesis degenerative spondylolisthesis TECHNIQUE: Standardized fat and water weighted pulse sequences were obtained in the sagittal and axial planes. COMPARISON: X-ray of the lumbar spine dated April 28, 2022. CT of abdomen and pelvis dated September 20, 2020 FINDINGS: Normal lumbar lordosis. Mild levoscoliosis is present. Normal conus medullaris that terminates at the T12 level. No marrow edema or fracture or compression deformity is seen. T12-L1: Normal endplates. Normal disc height, hydration and morphology. Normal bilateral facet joints. Normal central canal and bilateral lateral recesses. Normal bilateral intervertebral neural foramina. L1-2: Normal endplates. Normal disc height, hydration and morphology. Normal bilateral facet joints. Normal central canal and bilateral lateral recesses. Normal bilateral intervertebral neural foramina. L2-3: Normal endplates. Normal disc height, hydration and morphology. Normal bilateral facet joints. Normal central canal and bilateral lateral recesses. Normal bilateral intervertebral neural foramina. L3-4: Diffuse disc desiccation with mild to moderate disc space narrowing resulting in a broad-based disc herniation. Superimposed right paracentral disc protrusion causes moderate right foraminal stenosis with nerve root compression. Mild to moderate left foraminal stenosis with nerve root impingement also noted. Mild facet joint hypertrophy. Mild central canal stenosis. Anterolisthesis of L3 on L4 of less than 2 mm. L4-5: Normal endplates. Mild posterior disc space narrowing with a small shallow proximal right foraminal disc protrusion and annular tear contributing to mild right foraminal stenosis. Normal left neural foramen. Normal bilateral facet joints. Normal central canal and bilateral lateral recesses. L5-S1: Normal endplates. Diffuse disc desiccation. Small benign fatty hemangioma of the L5 vertebral body. Normal disc height and morphology. Mild facet joint hypertrophy. Normal central canal and bilateral lateral recesses. Mild right foraminal stenosis with posterior nerve root impingement. Normal left neural foramen. Normal visualized sacral ala. Normal visualized paraspinous soft tissue structures. MRI/Spine Lumbar (Routine) IMPRESSION: 1. Multilevel degenerative changes, as described above. 2. Multilevel foraminal stenosis 3. Mild central canal stenosis at L3-L4 4. Mild to moderate left foraminal stenosis with nerve root impingement at L3-L4 5. Right foraminal disc protrusion contributing to moderate right foraminal stenosis with nerve root compression at L3-L4 Electronically Signed: Eyal Mi MD at 11:46 EST ,
== END | disposition home or self-care (01) ==
PROVIDERS: PCP Family Medicine; Visit Provider Orthopaedic Surgery
DX: M43.16 Spondylolisthesis, lumbar region (principal)
CPT/HCPCS: 72148

== ENCOUNTER 2022-07-26 07:31 | Day surgery (SDC) | payer OTHER, SELFPAY ==
[2022-07-26] VITALS (7 sets, daily range): BP systolic 115–133; BP diastolic 59–84; PULSE 65–73; RESP 16–18; TEMP 36.1–37.2; O2SAT 95–97; BMI 32.9
[2022-07-26 08:05] LABS: Internal QC Validated? YES +Cl - CLEAR BKGD; Pregnancy, Urine Negative Negative
[2022-07-26] MEDS: Lactated Ringers 1,000 ML 15 ML IV (08:11)
--- NOTE | 2022-07-26 08:57 | RAD_ITS ---
PROCEDURE: Left sacroiliac joint injection. DATE OF EXAMINATION: July 26, 2022. INDICATION: Female, 42 years old. Right-sided pelvic pain. FLUOROSCOPY TIME (if supplied): (9.6 seconds) minutes/seconds. 2.71 mGy RAD/Fluoro Guided Needle Placement IMPRESSION: Intraoperative imaging provided for left sacroiliac joint injection. Electronically Signed: Carlos Babb MD at 10:18 EDT ,
[2022-07-26] MEDS: MethylPREDNISolone Acetate 80 MG/ML Vial (08:59)
[2022-07-26] MEDS: Lidocaine 1% (5 ml sdv) 5 ML Vial (08:59)
--- NOTE | 2022-07-26 09:37 | OP.PCM_ITS ---
Report of Operation Date of Procedure: 07/26/22 Description of Surgical Findings:: PREOPERATIVE DIAGNOSES: 1. Sacroiliitis. 2. Sacroiliac joint dysfunction. POSTOPERATIVE DIAGNOSES: 1. Sacroiliitis. 2. Sacroiliac joint dysfunction. PROCEDURE PERFORMED: Left-sided sacroiliac joint steroid injection under fluoroscopy guidance. ANESTHESIA: MAC. BLOOD LOSS: Minimal. COMPLICATIONS: None. DESCRIPTION OF PROCEDURE: History and physical of today was reviewed. Risks and benefits of the procedure were explained. The patient understood and agreed to the procedure. Informed consent was obtained. IV inserted per routine protocol. The patient was taken to the operating room and placed in the prone position with a pillow positioned underneath the abdomen. The left lower back and buttock area was prepped and draped in a sterile fashion using iodine x3. Under fluoroscopy guidance on an AP view, the left SI joint was visualized. The skin and subcutaneous tissue was anesthetized with approximately 3 mL of 1% lidocaine using a 25-gauge regular needle. Under direct visualization with fluoroscopy at approximately 15-degree angle, using a 22-gauge 3-1/2-inch spinal needle, the needle was advanced via the skin. The tip of the needle was maneuvered and directed towards the inferior one-third of the posterior SI joint. Once the tip of the needle was at the vicinity of the joint, after negative aspiration for blood or CSF, a total of 1 mL of contrast was injected to confirm correct placement of the needle as well as cephalocaudal spread. Confirmation was obtained on AP as well as oblique view. After repeated negativ e aspiration and confirmation, a total of 4 mL of preservative-free 0.25% Marcaine with 40 mg of Depo-Medrol was injected in and around the SI joint. The needle was then removed intact. The patient experienced no sign or symptoms of intrathecal or intravascular injection. The patient experienced no paresthesia. The procedure was completed without any apparent difficulty or any complications. The patient appeared to tolerate it well. ASSESSMENT AND PLAN: This is a 42-year-old female with sacroiliitis, sacroiliac joint dysfunction status post left-sided sacroiliac joint steroid injection under fluoroscopic guidance, patient will continue her current medications, patient will follow approximately 1 to 2 weeks for reevaluation.
== END 2022-07-26 09:53 | disposition home or self-care (01) ==
LOC: SDC 07:32 → AC 07:33
PROVIDERS: Anesthesiology; PCP Family Medicine; Referring Provider Anesthesiology Pain Medicine; Visit Provider Anesthesiology Pain Medicine
PROC: 3E0U3GC Introduction of Other Therapeutic Substance into Joints, Percutaneous Approach (ICD-10-PCS; CPT 27096; principal; 2022-07-26 09:15)
DX: M46.1 Sacroiliitis, not elsewhere classified (principal); M46.96 Unspecified inflammatory spondylopathy, lumbar region; K21.9 Gastro-esophageal reflux disease without esophagitis; M53.3 Sacrococcygeal disorders, not elsewhere classified; M47.27 Other spondylosis with radiculopathy, lumbosacral region; M51.37 Other intervertebral disc degeneration, lumbosacral region; Z79.899 Other long term (current) drug therapy
CPT/HCPCS: 27096; 76000; 77002; 81025; J7120

== ENCOUNTER → 2022-08-13 | Outpatient (CLI) | payer OTHER, SELFPAY ==
[2022-08-13 10:25] LABS: Bacteria 0 SEEN /hpf (None Seen); Mucous, Urine 0 SEEN /hpf (<or=2+); White Blood Cells 0 SEEN /hpf (0-5)
[2022-08-13 10:28] LABS: Color, Urine Yellow (Yellow); Glucose, Dipstick Normal (Normal); Ketone-Dipstick Negative (Negative); Leukocyte Esterase-Dipstick Negative /ul (Negative); Nitrite-Dipstick Negative (Negative); Occult Blood-Urine 10 /ul (Negative); Protein-Dipstick Negative (Negative); Urine Bilirubin Dipstick Negative (Negative); Urine Clarity Clear (Clear); Urine Urobilinogen Normal (Normal)
[2022-08-13 10:35] LABS: Red Blood Cells-Urine 0-5 SEEN /hpf (0-5); Squamous Epithelial Cells - UA 0-5 SEEN /hpf (5-10)
== END | disposition home or self-care (01) ==
LOC: LABSPEC 09:53
PROVIDERS: PCP Family Medicine; Referring Provider Physician Assistant Surgical; Visit Provider Physician Assistant Surgical
DX: N39.0 Urinary tract infection, site not specified (principal)
CPT/HCPCS: 81001; 87086; 87088

== ENCOUNTER 2022-08-23 08:37 | Day surgery (SDC) | payer OTHER, SELFPAY ==
[2022-08-23] VITALS (7 sets, daily range): BP systolic 114–128; BP diastolic 66–84; PULSE 60–63; RESP 16–17; TEMP 36.3–36.8; O2SAT 95–100; BMI 33.8
[2022-08-23 09:16] LABS: Internal QC Validated? YES +Cl - CLEAR BKGD; Pregnancy, Urine Negative Negative
[2022-08-23] MEDS: Lactated Ringers 1,000 ML 15 ML IV (09:19)
--- NOTE | 2022-08-23 09:55 | RAD_ITS ---
PROCEDURE: Caudal block. DATE OF EXAMINATION: August 23, 2022. INDICATION: Female, 42 years old. Chronic low back pain. FLUOROSCOPY TIME (if supplied): (10 seconds) minutes/seconds. 7.43 mGy. One image was submitted. RAD/Fluor Guidance for Spine Inj IMPRESSION: Intraoperative imaging provided for caudal block. Electronically Signed: Carlos Babb MD at 12:49 EDT ,
[2022-08-23] MEDS: Lidocaine 1% (5 ml sdv) 5 ML Vial (10:07)
[2022-08-23] MEDS: MethylPREDNISolone Acetate 80 MG/ML Vial (10:07)
[2022-08-23] MEDS: 0.9% Normal Saline (Pres. free 10 ML Vial (10:08)
--- NOTE | 2022-08-23 10:27 | OP.PCM_ITS ---
Report of Operation Date of Procedure: 08/23/22 Pre-Operative Diagnosis: Lumbosacral radiculopathy, lumbosacral degenerative di sc disease, lumbosacral spinal stenosis Post-Operative Diagnosis: Lumbosacral radiculopathy, lumbosacral degenerative disc disease, lumbosacral spinal stenosis Surgery/Procedure Performed:: Caudal epidural steroid injection under fluoroscopic guidance Type of Anesthesia: MAC Estimated Blood Loss (mL): Minimal Description of Procedure: DESCRIPTION OF PROCEDURE: History and physical of today was reviewed. Risks and benefits of the procedure were explained. The patient understood and agreed to proceed. Informed consent was obtained. IV inserted per routine protocol. The patient was taken to the operating room and placed in the prone position with a pillow positioned underneath the abdomen. The lower back and tailbone area was prepped and draped in a sterile fashion using iodine x3. Under fluoroscopy guidance on a lateral view, the caudal space was identified. The skin and subcutaneous tissue was anesthetized with approximately 3 mL of 1% lidocaine using a 25-gauge regular needle. Under direct visualization with fluoroscopy, using a 22-gauge 3-1/2-inch spinal needle, the needle was advanced via the skin through the sacral hiatus. The tip of the needle was passed through the sacrococcygeal ligament and advanced to approximately S4 area. After negative aspiration of blood or CSF, a total of 3 mL of contrast was injected to confirm correct placement of the needle as well as cephalad spread. The spread was followed to approximately L5 area. After confirmation on AP as well as lateral view and repeated negative aspiration, a total of 15 mL of preservative-free 0.125% Marcaine with 80 mg of Depo-Medrol was injected easily. The needle was then removed intact. The patient experienced no sign or symptoms of intrathecal or intravascular injection. The patient experienced no paresthesia. The procedure was completed without any apparent difficulty or any complications. The patient appeared to tolerate it well. ASSESSMENT AND PLAN: This is a 42-year-old female with lumbosacral radiculopathy, lumbosacral degenerative disc disease, lumbosacral spinal stenosis status post caudal epidural steroid injection, patient will continue her current medications, patient will follow in approximately 2 weeks for reevaluation. Complications None
== END 2022-08-23 10:51 | disposition home or self-care (01) ==
LOC: SDC 08:52 → AC 08:59
PROVIDERS: Anesthesiology; PCP Family Medicine; Referring Provider Anesthesiology Pain Medicine; Visit Provider Anesthesiology Pain Medicine
PROC: 3E0S3BZ Introduction of Anesthetic Agent into Epidural Space, Percutaneous Approach (ICD-10-PCS; CPT 62282; principal; 2022-08-23 10:25)
DX: M51.17 Intervertebral disc disorders with radiculopathy, lumbosacral region (principal); M47.27 Other spondylosis with radiculopathy, lumbosacral region; M48.07 Spinal stenosis, lumbosacral region; M53.3 Sacrococcygeal disorders, not elsewhere classified; K21.9 Gastro-esophageal reflux disease without esophagitis; Z79.899 Other long term (current) drug therapy; Z87.891 Personal history of nicotine dependence
CPT/HCPCS: 62323; 01992; 64483; 77003; 81025; J7120; J3490

== ENCOUNTER → 2022-09-27 | Outpatient (CLI) | payer OTHER, SELFPAY ==
--- NOTE | 2022-09-27 16:40 | RAD_ITS ---
INDICATION: PAIN EXAMINATION/TECHNIQUE: X-RAY - XR Hip Unilateral with Pelvis when performed; 2-3 Views COMPARISON: No previous relevant examinations available for comparison. FINDINGS: PELVIC BONES: No displaced fracture, destructive or sclerotic lesions. Note that overlapping bowel shadows may however obscure fine detail. Sacroiliac joints are unremarkable. No widening of the pubic symphysis. HIPS: The articular structures are unremarkable. No displaced fracture seen in this frontal view. Minimal osteophyte formation at the acetabular roof bilaterally. SOFT TISSUES: No soft tissue swelling or gas. RAD/HIP, UNI W/ Pelvis 2-3 Views IMPRESSION: 1. No evidence of displaced pelvic or hip fracture. No acute destructive or sclerotic bony processes. 2. Minimal osteophyte formation involving the acetabular roof bilaterally. Electronically Signed: Keaton Schmitz MD at 17:18 EDT ,
== END | disposition home or self-care (01) ==
LOC: RAD 16:34
PROVIDERS: PCP Family Medicine; Referring Provider Nurse Practitioner Acute Care; Visit Provider Nurse Practitioner Acute Care
DX: M25.552 Pain in left hip (principal); M53.3 Sacrococcygeal disorders, not elsewhere classified
CPT/HCPCS: 73502

== ENCOUNTER → 2022-12-08 | Outpatient (CLI) | payer OTHER, SELFPAY ==
--- NOTE | 2022-12-08 13:17 | US_ITS ---
EXAM: US PELVIS TRANSABDOMINAL, COMPLETE CLINICAL INDICATION: RLQ PAIN TECHNIQUE: Transabdominal pelvic ultrasound was performed with grayscale and color Doppler imaging. COMPARISON: No relevant prior studies available. FINDINGS: UTERUS/CERVIX: Endometrial complex is unremarkable. Anteverted uterus. Uterus measures 10.1 6.2 x 4.6 cm without discrete mass. RIGHT OVARY: Right ovary is normal measuring 2.6 x 2.2 x 2.2 cm with blood flow demonstrated to its. No adnexal masses bilaterally. LEFT OVARY: Left ovary is not visualized potentially due to positioning poor overlying bowel gas. FREE FLUID: No free fluid in the pelvic cul-de-sac. BLADDER: Visualized bladder is unremarkable. US/Pelvic (Non ) IMPRESSION: Left ovary not visualized potentially due to overlying bowel gas or positioning. Otherwise unremarkable exam. Electronically Signed: Baljeet Leger MD at 23:44 EDT ,
== END | disposition home or self-care (01) ==
LOC: US 13:16
PROVIDERS: PCP Family Medicine; Referring Provider Family Medicine; Visit Provider Family Medicine
DX: R10.31 Right lower quadrant pain (principal)
CPT/HCPCS: 76856

== ENCOUNTER 2022-12-13 07:06 | Day surgery (SDC) | payer OTHER, SELFPAY ==
[2022-12-13] VITALS (9 sets, daily range): BP systolic 90–136; BP diastolic 45–80; PULSE 49–68; RESP 12–18; TEMP 36.2–36.5; O2SAT 93–98; BMI 34.9
[2022-12-13 07:34] LABS: Internal QC Validated? YES +Cl - CLEAR BKGD; Pregnancy, Urine Negative Negative
[2022-12-13] MEDS: Lactated Ringers 1,000 ML 15 ML IV (07:37)
--- NOTE | 2022-12-13 08:53 | RAD_ITS ---
EXAMINATION: Fluoroscopic guided lumbar and sacral block. INDICATION: PAIN Total Fluoroscopic Time: 20 seconds AND number of Fluoroscopic Images: 7 OR Radiation dosage index: 12.3 mGy COMPARISON: Lumbar spine radiograph from 05/29/2022 FINDINGS: Limited intraoperative fluoroscopic images from lumbar spine submitted for review. There is intraoperative placement of needles at the L5-S1 levels and along the right sacrum. RAD/Sacrum-Coccyx min 2 Views IMPRESSION: Fluoroscopic guided lumbar and sacral block procedure. Please see intraoperative report for further details. Electronically Signed: Laron Dickerson DO at 11:08 EDT ,
[2022-12-13] MEDS: MethylPREDNISolone Acetate 40 MG/ML Vial IM (09:13)
[2022-12-13] MEDS: Lidocaine 1% (30 ml sdv) 30 ML Vial (09:13)
--- NOTE | 2022-12-13 09:23 | OP.PCM_ITS ---
Report of Operation Date of Procedure: 12/13/22 Description of Surgical Findings:: PROCEDURE: Left-sided lumbosacral radiofrequency ablation of the medial/lateral branch L5- S1, S2, S3 PREOPERATIVE DIAGNOSES: Lumbosacral spondylosis, disorder of the sacrum, sacroiliitis POSTOPERATIVE DIAGNOSES: Lumbosacral spondylosis, disorder of the sacrum, sacroiliitis ANESTHESIA: MAC COMPLICATIONS: None BLOOD LOSS: Minimal PROCEDURE IN DETAIL: History and physical today was reviewed. Risks and benefits of procedure e xplained. The patient understood, agreed to the procedure and informed consent was obtained. IV inserted per routine protocol. The patient was taken to the operating room, placed in the prone position with a pillow positioned underneath the abdomen. The left side of the lower back and buttock area was prepped and draped in a sterile fashion using iodine x 3. Under fluoroscopy guidance, on AP view, the L5 through S3 and sacroiliac joint were visualized. The skin and subcutaneous tissue was anesthetized with approximately 10 mL of 1% lidocaine using a 25-gauge regular needle. Under direct visualization with fluoroscopy at approximately 15-degree angle, starting on the left L5, ending on the left S3, passing through the S1, S2 lateral branch. Using a 22-gauge 10 cm with a 10 mm curved ac tive tip radiofrequency ablation needle, the needle passed through the skin. The tip of the needle was maneuvered and directed towards the superior and medial gutter of the transverse process at the vicinity of the medial branch. The second needle was then maneuvered and directed towards the sacral ala and the third and fourth needle were then directed towards the medial border of the sacroiliac joint at the S2, S3 area. Once the tip of the needle was at the vicinity of the medial branch/lateral branch, the needle pulled approximately 2 mm up the bone. The stylet of each needle was then removed. The radiofrequency ablation probe was then inserted at each level. After confirmation of AP, oblique as well as lateral view, impedance was then recorded at L5 to be 231, at S1 292, at S2 283, at S3 245 ohm. Motor-evoked potential was then initiated to 1.5 volt without any motor response at each corresponding level. The probe was then removed intact and a total of 6 mL of preservative-free 1% lidocaine was injected in divided doses between those 4 levels after negative aspiration of blood with CSF. The radiofrequency ablation probe was then reinserted after confirmation of AP, oblique as well as lateral view. Radiofrequency ablation was then initiated to 80 degrees Celsius for 90 seconds at each level. Once concluded, the probe was then removed intact and a total of 6 mL of preservative-free 0.25% Marcaine with 40 mg Depo-Medrol was injected in divided doses between those 4 levels. The needles were then removed intact. The patient experienced no signs or symptoms of intrathecal, intravascular injection. The patient experienced no paraesthesia. The procedure was completed without any apparent difficulty, any complication. The patient appeared to tolerate well. Sensory as well as motor exam was unchanged from prior to procedure. ASSESSMENT AND PLAN: This is a 42-year-old female with lumbosacral spondylosis, disorder of the sacrum, sacroiliitis, status post left-sided lumbosacral radiofrequency ablation of the medial/lateral branch L5 through S3. The patient will continue their current medications. The patient will follow up in approximately 2 weeks for reevaluation.
== END 2022-12-13 10:35 | disposition home or self-care (01) ==
LOC: SDC 07:06 → AC 07:09
PROVIDERS: Anesthesiology; PCP Family Medicine; Referring Provider Anesthesiology Pain Medicine; Visit Provider Anesthesiology Pain Medicine
PROC: (CPT 64635; principal; 2022-12-13 08:40)
DX: M46.1 Sacroiliitis, not elsewhere classified (principal); M47.817 Spondylosis without myelopathy or radiculopathy, lumbosacral region; K21.9 Gastro-esophageal reflux disease without esophagitis; Z79.899 Other long term (current) drug therapy
CPT/HCPCS: 64635; 64636; 72220; 76000; 81025; J7120

== ENCOUNTER → 2023-01-11 | Outpatient (CLI) | payer OTHER, SELFPAY ==
--- NOTE | 2023-01-11 16:05 | RAD_ITS ---
STUDY: X-RAY - SACROILIAC JOINTS REASON FOR EXAM: Female, 42 years old. Other spondylosis with radiculopathy, lumbosacral region TECHNIQUE: 3 view(s) of the sacroiliac joints were obtained. COMPARISON: None. FINDINGS: Normal bilateral sacroiliac joints. Normal visualized sacral ala and sacrum. There is no demonstrated osseous destructive process. Normal visualized iliac bones. Normal visualized soft tissue structures. RAD/S-I Jts 3 or More Views IMPRESSION: Normal x-ray examination of the bilateral sacroiliac joints. Electronically Signed: Inocente Marsh MD at 22:57 EDT ,
== END | disposition home or self-care (01) ==
LOC: RAD 16:03
PROVIDERS: PCP Family Medicine; Referring Provider Nurse Practitioner Acute Care; Visit Provider Nurse Practitioner Acute Care
DX: M53.3 Sacrococcygeal disorders, not elsewhere classified (principal); M46.96 Unspecified inflammatory spondylopathy, lumbar region; M47.27 Other spondylosis with radiculopathy, lumbosacral region; M51.37 Other intervertebral disc degeneration, lumbosacral region; M25.552 Pain in left hip
CPT/HCPCS: 72202

== ENCOUNTER 2023-02-28 07:28 | Day surgery (SDC) | payer OTHER, SELFPAY ==
[2023-02-28] MEDS: Lactated Ringers 1,000 ML 15 ML IV (07:47)
[2023-02-28 07:48] VITALS: BP 125/89; PULSE 75; RESP 18; TEMP 37.1; O2SAT 98; BMI 34.7
[2023-02-28 07:52] LABS: Internal QC Validated? YES +Cl - CLEAR BKGD; Pregnancy, Urine Negative Negative; Record Kit Lot#,Urine Preg HCG0000667200
--- NOTE | 2023-02-28 08:50 | RAD_ITS ---
STUDY: LEFT L3-L4 AND L4-L5 TRANSFORAMINAL EPIDURAL STEROID INJECTIONS. REASON FOR EXAM: Female, 42 years old. TRANSFORAMINAL EPIDURAL STEROID INJECTIONS L3-4, L4-5, LEFT FLUOROSCOPY TIME (if supplied): ( 11 seconds ) minutes/seconds. 3.18 mGy. 4 images were submitted. FINDINGS: Intraoperative imaging provided for left L3-L4 and L4-L5 transforaminal epidural steroid injection. RAD/Lumbar Spine 2 or 3 Views IMPRESSION: Intraoperative imaging provided for left L3-L4 and L4-L5 transforaminal epidural steroid injection. Electronically Signed: Carlos Babb MD at 10:02 EST ,
[2023-02-28] MEDS: MethylPREDNISolone Acetate 80 MG/ML Vial (08:57)
[2023-02-28] MEDS: Lidocaine 1% (5 ml sdv) 5 ML Vial (08:58)
--- NOTE | 2023-02-28 09:02 | PCM.OPRPT ---
Report of Operation Date of Procedure: 02/28/23 Description of Surgical Findings:: PREOPERATIVE DIAGNOSES: 1. Lumbosacral radiculopathy. 2. Lumbosacral degenerative disk disease. 3. Lumbosacral spinal stenosis. POSTOPERATIVE DIAGNOSES: 1. Lumbosacral radiculopathy. 2. Lumbosacral degenerative disk disease. 3. Lumbosacral spinal stenosis. PROCEDURE PERFORMED: Left-sided lumbar transforaminal epidural steroid injection, L3-4 and L4-5. ANESTHESIA: MAC. BLOOD LOSS: Minimal. COMPLICATIONS: None. DESCRIPTION OF PROCEDURE: History and physical of today was reviewed. Risks and benefits of the procedure were explained. The patient understood and agreed to proceed. Informed consent was obtained. IV inserted per routine protocol. The patient was taken to the operating room and placed in the prone position with a pillow positioned underneath the abdomen. The left side of his lower back was prepped and draped in a sterile fashion using iodine x3. Under fluoroscopy guidance on oblique view, the L3 through L5 vertebral bodies were visualized. The skin and subcutaneous tissue was anesthetized with approximately 5 mL of 1% lidocaine using a 25-gauge regular needle. Under direct visualization with fluoroscopy at approximately 35-degree angle, starting on the left L3, ending on the left L4, using a 22-gauge 5-inch spinal needle, the needle was advanced via the skin. The tip of the needle was maneuvered and directed towards the inferior and medial gutter of the transverse process at the superiormost aspect of the neural foramen. Once the tip of the needle was at the vicinity of the foramen, after negative aspiration for blood or CSF, a total of 1 mL of contrast was injected in divided doses between both levels to confirm correct placement of the needle as well as medial spread. The confirmation was obtained on AP as well as lateral view. After repeated negative aspiration and confirmation on AP as well as lateral view, a total of 6 mL of preservative-free 0.25% Marcaine with 80 mg of Depo-Medrol was injected in divided doses between both levels. The needles were then removed intact. The patient experienced no sign or symptoms of intrathecal or intravascular injection. The patient experienced no paresthesia. The procedure was completed without any apparent difficulty or any complications. The patient appeared to tolerate it well. ASSESSMENT AND PLAN: This is a 42-year-old female with lumbosacral radiculopathy, lumbosacral degenerative disk disease, and lumbosacral spinal stenosis, status post left-sided lumbar transforaminal epidural steroid injection at L3-4 and L4-5. The patient will continue her current medications. The patient will follow up in approximately 2 weeks for reevaluation.
[2023-02-28 09:07] VITALS: BP 111/92; BP 125/89; PULSE 59; RESP 16; TEMP 36.6; O2SAT 98
[2023-02-28 09:10] VITALS: BP 116/72; BP 125/89; PULSE 68; RESP 16; O2SAT 97
[2023-02-28 09:15] VITALS: BP 120/76; BP 125/89; PULSE 63; RESP 16; O2SAT 98
[2023-02-28 09:20] VITALS: BP 125/89; BP 126/73; PULSE 71; RESP 16; TEMP 36.6; O2SAT 100
== END 2023-02-28 09:44 | disposition home or self-care (01) ==
LOC: SDC 07:29 → AC 07:29
PROVIDERS: Anesthesiology; PCP Family Medicine; Referring Provider Anesthesiology Pain Medicine; Visit Provider Anesthesiology Pain Medicine
PROC: 3E0S3BZ Introduction of Anesthetic Agent into Epidural Space, Percutaneous Approach (ICD-10-PCS; CPT 64484; principal; 2023-02-28 09:15)
DX: M51.17 Intervertebral disc disorders with radiculopathy, lumbosacral region (principal); M48.07 Spinal stenosis, lumbosacral region
CPT/HCPCS: 64484; 64483; 72100; 81025; J7120

== ENCOUNTER → 2023-05-27 | Outpatient (CLI) | payer OTHER, SELFPAY ==
--- NOTE | 2023-05-27 10:30 | BI_ITS ---
MAMMOGRAPHY - BILATERAL SCREENING REASON FOR EXAM: Female, 43 years old. Routine annual screening examination. PERTINENT HISTORY: Non-contributory. TECHNIQUE: Digital bilateral breast erick (3D mammographic acquisition) in the CC and MLO projections. 2-D mediolateral oblique (MLO) and craniocaudad (CC) views of both breasts were obtained. CAD: Full Field Digital Mammography with Computer Added Detection was performed. COMPARISON: Comparison is made with prior examination March 01, 2022 and January 29, 2021. FINDINGS: Breast Composition: The breasts are extremely dense, which lowers the sensitivity of mammography. There are no dominant masses or suspicious calcifications. Stable small benign-appearing bilateral axillary lymph nodes. No other significant abnormalities are identified. There has been no significant change since the prior study. BI/SCRN MAMM (CAD)W/ERICK BILAT IMPRESSION: Stable bilateral screening mammogram. Yearly follow-up mammogram recommended. (A) ASSESSMENT CATEGORY: BIRADS Category 2: Benign. A letter regarding these results will be sent to the patient by the facility within 30 days. Approximately 10% of breast cancers are not detected by mammography. A normal mammogram should not delay biopsy of a clinically suspicious abnormality. [id number] Electronically Signed: Carlos Babb MD at 13:14 EST ,
== END | disposition home or self-care (01) ==
LOC: OPBI 10:28
PROVIDERS: PCP Family Medicine; Referring Provider Nurse Practitioner Women's Health; Visit Provider Nurse Practitioner Women's Health
DX: Z12.31 Encounter for screening mammogram for malignant neoplasm of breast (principal)
CPT/HCPCS: 77063; 77067

== ENCOUNTER → 2023-06-07 | Outpatient (CLI) | payer OTHER, SELFPAY ==
--- OUTSIDE RECORDS SUMMARY | 2023-06-07 07:33 | XMS RPT_ITS | CCD ---
Author Name Unknown Address [address] [place] [address] Organization [facility] Care Team Providers Care Rn Access Name Role Phone Cami DENISE, Lavell Muñoz Unavailable [phone] Unavailable Primary Care Provider NAMRATA Robles Attending Unavailable Allergies Allergy Classification Reported Allergen(s) Allergy Type Date of Onset Reaction(s) Facility (5 sources) penicillin g Drug Allergy 7 [facility] Work Phone: (2 sources) Albuterol; Translations: [ALBUTEROL SULFATE] Drug Allergy 5 Shortness of Breath [facility] Work Phone: (2 sources) Penicillin G; Translations: [PENICILLIN G] Drug Allergy 5 Intolerance [facility] Work Phone: Medications Completed/Discontinued Medications Medication Drug Class(es) Dates Sig (Normalized) Sig (Original) adapalene 0.001 mg/mg / benzoyl peroxide 0.025 mg/mg topical gel (6 sources) Retinoid Start: 02-14-2017 EPIDUO 0.1-2.5 % GEL ADAPALENE-BENZOYL PEROXIDE [id number] Lavell Almanza MD Problems Active Problems Problem Classification Problem Date Documented Da te Episodic/Chronic Asthma (1 source) Childhood asthma; Translations: [Unspecified asthma, uncomplicated] Onset: 08-12-2011 04-20-2021 Chronic Other nutritional; endocrine; and metabolic disorders (2 sources) Obese class I; Translations: [Obesity, unspecified] Onset: 02-03-2022 Chronic Residual codes; unclassified (1 source) Flushing; Translations: [Flushing] Episodic Urinary tract infections (1 source) Chronic interstitial cystitis; Translations: [Interstitial cystitis (chronic) without hematuria] Onset: 08-12-2011 04-20-2021 Chronic Past or Other Problems Problem Classification Problem Date Documented Da te Episodic/Chronic Lymphadenitis (5 sources) Lymphadenopathy; Translations: [Enlarged lymph nodes, unspecified] Onset: 02-14-2017 02-14-2017 Episodic Other skin disorders (6 sources) Acne; Translations: [Acne, unspecified] Onset: 06-23-2010 02-14-2017 Episodic Results Test Name Value Interpretation Reference Range Facil ity Vital Signs Date Time Vital Sign Value Performing Clinician Faci lity 02-03-2022 08:32-0400 Body height 165.1 cm Violet Gong MD Work Phone: [facility] 02-03-2022 08:32-0400 Body weight 90.72 kg Violet Gong MD Work Phone: [facility] 02-03-2022 08:32-0400 Diastolic blood pressure 76 mm[Hg] Violet Gong MD Work Phone: [facility] 02-03-2022 08:32-0400 Systolic blood pressure 126 mm[Hg] Violet Gong MD Work Phone: [facility] 02-14-2017 09:10-0400 BP Diastolic 76 mm[Hg] Lavell Almanza MD [facility] Work Phone: 02-14-2017 09:10-0400 BP Systolic 109 mm[Hg] Lavell Almanza MD [facility] Work Phone: 02-14-2017 09:10-0400 Pulse (Heart Rate) 71 /min Lavell Almanza MD [facility] Work Phone: 02-14-2017 09:10-0400 Respiratory Rate 18 /min Lavell Almanza MD [facility] Work Phone: Encounters Encounter Date Encounter Type Care Provider Facility Start: 04-15-2023 End: 04-15-2023 ambulatory NAMRATA RICKETTS Facility:[facility] Start: 02-03-2022 End: 02-03-2022 Patient encounter procedure Violet Gong MD Work Phone: OB/Gynecology Procedures Date Procedure Procedure Detail Performing Clinician Start: 01-29-2021 Mammography Violet koo MD Work Phone: Plan of Treatment Date Care Activity Detail Author Start: 12-11-2025 HPV TESTING HPV TESTING [facility] Start: 12-11-2025 PAP TESTING PAP TESTING [facility] Start: 02-03-2022 End: 04-05-2022 CBC panel - Blood by Automated count CBC Lab Routine Hot flashes Expected: 02/03/2022, Expires: 04/05/2022 [facility] Work Phone: Immunizations Immunization Date Immunization Notes Care Provider Fa cilibernarda 11-13-2009 tetanus toxoid, redu delphine diphtheria toxoid, and acellular pertussis vaccine, adsorbed Violet Gong MD Work Phone: [facility] Work Phone: 06-01-2005 influenza virus vaccine, whole virus Violet Gong MD Work Phone: [facility] 03-27-1999 hepatitis B vaccine, adult dosage Violet Gong MD Work Phone: [facility] Work Phone: 11-12-1998 hepatitis B vaccine, adult dosage Violet Gong MD Work Phone: [facility] Work Phone: 10-15-1998 hepatitis B vaccine, adult dosage Violet Gong MD Work Phone: [facility] Work Phone: 09-10-1996 measles, mumps and rubella virus vaccine Violet Gong MD Work Phone: [facility] Work Phone: 09-10-1996 tetanus and diphther ia toxoids, adsorbed, preservative free, for adult use (2 Lf of tetanus toxoid and 2 Lf of diphtheria toxoid) Violet Gong MD Work Phone: [facility] Work Phone: 09-16-1983 diphtheria, tetanus toxoids and pertussis vaccine Violet Gong MD Work Phone: [facility] Work Phone: 09-16-1983 trivalent poliovirus vaccine, live, oral Violet Gong MD Work Phone: [facility] Work Phone: 10-09-1979 diphtheria, tetanus toxoids and pertussis vaccine Violet Gong MD Work Phone: [facility] Work Phone: 10-09-1979 trivalent poliovirus vaccine, live, oral Violet Gong MD Work Phone: [facility] Work Phone: 06-30-1979 measles, mumps and rubella virus vaccine Violet Gong MD Work Phone: [facility] Work Phone: 1978 diphtheria, tetanus toxoids and pertussis vaccine Violet Gong MD Work Phone: [facility] Work Phone: 1978 trivalent poliovirus vaccine, live, oral Violet Gong MD Work Phone: [facility] Work Phone: 1978 diphtheria, tetanus toxoids and pertussis vaccine Violet Gong MD Work Phone: [facility] Work Phone: 1978 trivalent poliovirus vaccine, live, oral Violet Gong MD Work Phone: [facility] Work Phone: 1978 diphtheria, tetanus toxoids and pertussis vaccine Violet Gong MD Work Phone: [facility] Work Phone: 1978 trivalent poliovirus vaccine, live, oral Violet Gong MD Work Phone: [facility] Work Phone: Payers Date Payer Category Payer Unknown MMO MMO [employer] [id number] 2018-Present [phone] [address] [place] [address] PPO [id number] 2018 Unknown [id number] Social History Date Type Detail Facility Start: 02-03-2022 Tobacco smoking stat us NHIS Ex-smoker [facility] End: 11-21-2009 History of tobacco use Current smoker [facility] End: 11-21-2009 History of tobacco use Cigarette Smoker [facility] Start: 02-03-2022 Cigarettes smoked current (pack per day) - Reported 0.5 [facility] Start: 02-03-2022 Tobacco use and exposure Smokeless t obacco non-user [facility] Start: 02-03-2022 Alcohol intake Current drinke r of alcohol (finding) [facility] Start: 04-21-2012 Alcohol Comment occasionally [facility] Start: 1980 Sex Assigned At Not on file [facility] Start: 01-24-2022 End: 02-03-2022 Exposure to SARS-CoV-2 (event) Not sure [facility] Progress note 04-15-2023 Note Date & Type Note Facility 04-15-2023 Note HNO ID: [id number] Author: 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 Menses: cycles every 30 days and 5-6 days of flow. Contraception: vasectomy HPV vaccine: No Last Pap: 12/16/2020 normal HPV: 12/15/2020 negative History of abnormal pap: No Last mammogram: [facility] Sexually active: Yes History of STDS: None Patient concerns for STD exposure: No. 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 History Comments: Sexual Activity: Yes; Male Contraception: Vasectomy PAST MEDICAL HISTORY Diagnosis Date Abdominal pain, epigastric Allergic rhinitis due to other allergen Asthma EXERCISE INDUCED ASTHMA A CHILD Duodenitis without mention of hemorrhage Interstitial cystitis Sacroiliitis (HCC) PAST SURGICAL HISTORY Procedure Laterality Date CARPAL TUNNEL Left 2020 EGD TRANSORAL BIOPSY SINGLE/MULTIPLE 05/28/2008 NEUROPLASTY AND/TRANSPOSITION ULNAR NERVE ELBOW Left 2020 PAST SURGICAL HISTORY OF back injections for sacroilitis FAMILY HISTORY Problem Relation Age of Onset Hypertension Mother Diabetes Mother Kidney Disease Mother Heart disease Mother No Known Problems Father Thyroid Cancer Sister No Known Problems Sister Coronary Artery Disease Maternal Grandmother Diabetes Maternal Grandmother Cancer Maternal Grandfather SKIN Alzheimer's Disease Maternal Grandfather No Known Problems Paternal Grandmother No Known Problems Son No Known Problems Son SOCIAL HISTORY Social History Tobacco Use Smoking status: Former Packs/day: 0.50 Years: 10.00 Additional pack years: 0.00 Total pack years: 5.00 Types: Cigarettes Quit date: 11/21/2009 Years since quittin.4 Passive exposure: Never Smokeless tobacco: Never Vaping Use Vaping Use: Never used Substance Use Topics Alcohol use: Yes Comment: occasionally Drug use: No REVIEW OF SYSTEMS Abdomen: No abdominal pain, nausea, vomiting, diarrhea, or constipation. No bloating, early satiety, indigestion, or increased flatulence. Bladder: No dysuria, gross hematuria, urinary frequency, urinary urgency, or incontinence. + interstitial cystitis (asymptomatic at this time, managed by urology) Breast: No breast lumps, nipple d/c, overlying skin changes, redness or skin retraction. Allergies and current medication updated:Yes EXAM: Ht 5' 5 (1.65m) Wt 204 lb (92.5kg) LMP 04/05/2023 BMI 33.95 kg/(m2). GENERAL: pleasant, female in no apparent distress HEENT: Normocephalic, atraumatic, mucus membranes moist, and no lesions NECK: Supple, full range of motion, no adenopathy, and thyroid normal DERMATOLOGY: Normal, without lesions, non-icteric, and non-hirsute BREAST: soft, non-tender, symmetric, no dominant mass, normal nipple-areolar complex, no lymphadenopathy, and no nipple discharge CHEST: Normal inspiratory effort ABDOMEN: soft, non-tender, and no masses PELVIC: external genitalia normal, normal Bartholin's glands, urethra, [place]'s glands, no vulvar lesions, no cervical lesions, good vaginal support, physiologic discharge present, normal appearing perineal body and perianal region + ectropion cervix BIMANUAL: uterus normal size, shape and consistency, no adnexal masses, and non-tender RECTOVAGINAL: deferred. NEURO: alert and oriented x3,exam grossly non-focal EXTREMITIES: normal ASSESSMENT/PLAN: 1) Health maintenance: Pap/HPV up to date 2020. Deferred until 2025. Mammogram ordered for [facility]. Nutrition, exercise and routine health maintenance exams reviewed. Calcium/Vitamin D supplementation information provided. Colonoscopy: prefers to discuss with PCP 2) Contraception: vasectomy. Contraceptive options reviewed and information provided. 3) STD screening: Declined STD check. 4) Follow up one year or sooner as needed Hot flashes - ICD9: 782.62, ICD10: R23.2 - Discussed lifestyle measures to help with hot flashes and night sweats - Consider evening primrose or black cohosh - Discussed Paroxetine for hot flashes - Discussed perimenopause and definition of menopause - To notify if she would like to discuss further options Vaginal dryness - ICD9: 625.8, ICD10: N89.8 - Vaginal lubricants and moisturizers discussed - Could consider estradiol cream, patient desires to avoid for now - To follow up if worsening Has lost 12 pounds with lifestyle changes. Namrata Ricketts APRN.[facility] History of Present illness Narrative 02-03-2022 Violet Gong MD - 02/03/2022 8:23 AM EDT Note Date & Type Note Facility 02-03-2022 History of Presen t illness Narrative Adeola is a 41 year old who presents for an annual gynecologic exam with complaints, wt gain . Menses: cycles every 28-30 days and 4- 5days of flow. 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 Comments: Sexual Activity: Yes; Male Contraception: Vasectomy PAST MEDICAL HISTORY Diagnosis Date Abdominal pain, epigastric Allergic rhinitis due to other allergen Asthma EXERCISE INDUCED ASTHMA A CHILD Duodenitis without mention of hemorrhage Interstitial cystitis PAST SURGICAL HISTORY Procedure Laterality Date CARPAL TUNNEL Left 2020 EGD TRANSORAL BIOPSY SINGLE/MULTIPLE 05/28/2008 NEUROPLASTY &/TRANSPOSITION ULNAR NERVE ELBOW Left 2020 FAMILY HISTORY Problem Relation Age of Onset Hypertension Mother Diabetes Mother Kidney Disease Mother Heart disease Mother No Known Problems Father Thyroid Cancer Sister No Known Problems Sister Coronary Artery Disease Maternal Grandmother Diabetes Maternal Grandmother Cancer Maternal Grandfather SKIN Alzheimer's Disease Maternal Grandfather No Known Problems Paternal Grandmother No Known Problems Son No Known Problems Son SOCIAL HISTORY Social History Tobacco Use Smoking status: Former Packs/day: 0.50 Years: 10.00 Pack years: 5.00 Types: Cigarettes Quit date: 11/21/2009 Years since quittin.2 Smokeless tobacco: Never Vaping Use Vaping Use: Never used Substance Use Topics Alcohol use: Yes Comment: occasionally Drug use: No REVIEW OF SYSTEMS Abdomen: No abdominal pain, nausea, vomiting, diarrhea, or constipation. No bloating, early satiety, indigestion, or increased flatulence. Bladder: No dysuria, gross hematuria, urinary frequency, urinary urgency, or incontinence. Breast: No breast lumps, nipple d/c, overlying skin changes, redness or skin retraction. Allergies and current medication updated:Yes EXAM: BP 126/76 Ht 5' 5 (1.65m) Wt 200 lb (90.7kg) LMP 01/20/2022 BMI 33.28 kg/(m^2). GENERAL: pleasant, female in no apparent distress HEENT: Normocephalic, atraumatic, mucus membranes moist, and no lesions NECK: Supple, full range of motion, no adenopathy, and thyroid normal DERMATOLOGY: Normal, without lesions, non-icteric, and non-hirsute BREAST: soft, non-tender, symmetric, no dominant mass, normal nipple-areolar complex, no lymphadenopathy, and no nipple discharge CHEST: Normal inspiratory effort ABDOMEN: soft, non-tender, and no masses PELVIC: external genitalia normal, normal Bartholin's glands, urethra, [place]'s glands, no vulvar lesions, no cervical lesions, good vaginal support, physiologic discharge present, normal appearing perineal body and perianal region BIMANUAL: uterus normal size, shape and consistency, no adnexal masses, and non-tender RECTOVAGINAL: deferred. NEURO: alert and oriented x3,exam grossly non-focal EXTREMITIES: normal ASSESSMENT/PLAN: 1) Health maintenance: Pap/HPV up to date. Mammogram ordered. 2) Contraception: vasectomy. Contraceptive options reviewed and information provided. 3) STD screening: Declined STD check. 4) Follow up one year or sooner as needed check labs for hot flashes, reassured Violet Gong MD documented in this encounter [facility] History of Past illness Narrative 02-02-2012 Note Date & Type Note Facility documented as of this encounter (statuses as of 02/03/2022) [facility] Evaluation note Note Date & Type Note Facility documented in this encounter [facility] Summary Purpose Family History No Family History Records Found Advance Directives No Advanced Directives Records Found Additional Source Comments Source Comments (unrecognize d section and content) In the event this informatio n is protected by the Federal Confidentiality of Alcohol and Drug Abuse Patient Records regulations: The Federal rules restrict any use of the information to criminally investigate or prosecute any alcohol or drug abuse patient.[facility] INFORMATION SOURCE (unrecogn ized section and content) FOR RECORDS PERTAINING TO PATIENTS WHO ARE OR HAVE BEEN ENROLLED IN A CHEMICAL DEPENDENCY/SUBSTANCEABUSE PROGRAM, SOME INFORMATION MAY BE OMITTED. This clinical summary was aggregated from multiple sources. Caution should be exercised in using it in the provision of clinical care. This summary normalizes information from multiple sources, and as a consequence, information in this document may materially change the coding, format and clinical context of patient data. In addition, data may be omitted in some cases. CLINICAL DECISIONS SHOULD BE BASED ON THE PRIMARY CLINICAL RECORDS. [facility]. provides no warranty or guarantee of the accuracy or completeness of information in this document.
[2023-06-07 07:56] LABS: Absolute Lymphocyte Count 2.77 X10^3/uL (0.83-4.51); Absolute Neutrophil Count 4.3 X10^3/uL (2.0-7.7); Basophil# 0.07 X10^3/uL; Basophil% 0.9 % (0-1); Eosinophil# 0.18 X10^3/uL; Eosinophils% 2.3 % (0-5); Hematocrit 40.5 % (37-47); Hemoglobin 13.1 g/dL (12.0-15.0); Lymphocyte # 2.77 X10^3/ul (0.83-4.51); Lymphocyte % 35.2 % (19-41); Mean Corp Hgb Conc 32.3 g/dL (32-36); Mean Corpuscular Hgb 28.5 pg (27.0-32.0); Mean Corpuscular Volume 88.2 fL (81-99); Mean Platelet Vol. 9.3 fl (6.2-12.0); Monocyte% 6.3 % (0-10); NRBC Flagged by Analyzer 0 % (0-5); Neutrophil # 4.34 X10^3/uL (2.7-7.7); Platelet Count 322 K/mm3 (150-450); RBC Distribution Width CV 12.7 % (11.6-14.6); RBC Distribution Width SD 41.2 fl (35.1-43.9); Red Blood Count 4.59 M/mm3 (4.2-5.4); White Blood Count 7.9 K/mm3 (4.4-11.0)
[2023-06-07 08:24] LABS: Vitamin D,25 Hydroxy 27.3 ng/mL
[2023-06-07 08:33] LABS: AST(SGOT) 11 U/L (15-37); Alanine Aminotransfer ALT/SGPT 15 U/L (13-56); Albumin, Serum 3.7 g/dL (3.2-5.0); Alkaline Phosphatase 71 U/L (45-117); Anion Gap 5 (5-15); BUN 10 mg/dL (7-18); BUN/Creat Ratio 13.6 RATIO (10-20); Calcium,Total 8.5 mg/dL (8.5-10.1); Chloride 111 mmol/L (98-107); Cholesterol 217 mg/dL (200); Creatinine, Serum 0.74 mg/dL (0.55-1.02); EST Glomerular Filtration Rate 91 mL/min (>60); Est Glom Filt Rate - Afr Amer 110 mL/min (>60); Globulin 3.7 g/dL (2.2-4.2); Glucose 109 mg/dL (74-106); High Density Lipoprotein 55 mg/dL; Potassium 4.1 mmol/L (3.5-5.1); Protein, Total 7.4 g/dL (6.4-8.2); Sodium Level 142 mmol/L (136-145); Thyroid Stim Hormone (TSH) 1.34 uIU/mL (0.358-3.74); Triglycerides 108 mg/dL; Very Low Density Lipoprotein 22 mg/dL (5-40)
== END | disposition home or self-care (01) ==
LOC: LAB 07:31
PROVIDERS: PCP Family Medicine; Referring Provider Family Medicine; Visit Provider Family Medicine
DX: Z00.00 Encounter for general adult medical examination without abnormal findings (principal); E55.9 Vitamin D deficiency, unspecified; R07.9 Chest pain, unspecified; R63.5 Abnormal weight gain
CPT/HCPCS: 36415; 80053; 80061; 82306; 84443; 85025

== ENCOUNTER 2023-06-27 07:39 | Day surgery (SDC) | payer OTHER, SELFPAY ==
--- OUTSIDE RECORDS SUMMARY | 2023-06-27 07:47 | XMS RPT_ITS | CCD ---
Author Name Unknown Address [address] [place] [address] Organization [facility] Care Team Providers Care Vegetable Buncher Name Role Phone Cami DENISE, Lavell Muñoz Unavailable [phone] Unavailable Primary Care Provider NAMRATA Robles Attending Unavailable Allergies Allergy Classification Reported Allergen(s) Allergy Type Date of Onset Reaction(s) Facility (5 sources) penicillin g Drug Allergy 7 [facility] Work Phone: (2 sources) Albuterol; Translations: [ALBUTEROL SULFATE] Drug Allergy 5 Shortness of Breath [facility] Work Phone: (2 sources) Penicillin G; Translations: [PENICILLIN G] Drug Allergy 5 Intolerance [facility] Work Phone: Medications Completed/Discontinued Medications Medication Drug Class(es) Dates Sig (Normalized) Sig (Original) adapalene 0.001 mg/mg / benzoyl peroxide 0.025 mg/mg topical gel (6 sources) Retinoid Start: 02-14-2017 EPIDUO 0.1-2.5 % GEL ADAPALENE-BENZOYL PEROXIDE [id number] Lavell Almanza MD Problems Active Problems Problem [...] 165.1 cm Violet Gong MD Work Phone: [facility] 02-03-2022 08:32-0400 Body weight 90.72 kg Violet Gong MD Work Phone: [facility] 02-03-2022 08:32-0400 Diastolic blood pressure 76 mm[Hg] Violet Gong MD Work Phone: [facility] 02-03-2022 08:32-0400 Systolic blood pressure 126 mm[Hg] Violet Gong MD Work Phone: [facility] 02-14-2017 09:10-0400 BP Diastolic 76 mm[Hg] Lavell Almanza MD [facility] Work Phone: 02-14-2017 09:10-0400 BP Systolic 109 mm[Hg] Lavell Almanza MD [facility] Work Phone: 02-14-2017 09:10-0400 Pulse (Heart Rate) 71 /min Lavell Almanza MD [facility] Work Phone: 02-14-2017 09:10-0400 Respiratory Rate 18 /min Lavell Almanza MD [facility] Work Phone: Encounters Encounter Date Encounter Type Care Provider Facility Start: 04-15-2023 End: 04-15-2023 ambulatory NAMRATA RICKETTS Facility:[facility] Start: 02-03-2022 End: 02-03-2022 Patient encounter procedure Violet Gong MD Work Phone: OB/Gynecology Procedures Date Procedure Procedure Detail Performing Clinician Start: 01-29-2021 Mammography Violet koo MD Work Phone: Plan of Treatment Date Care Activity Detail Author Start: 12-11-2025 HPV TESTING HPV TESTING [facility] Start: 12-11-2025 PAP TESTING PAP TESTING [facility] Start: 02-03-2022 End: 04-05-2022 CBC panel - Blood by Automated count CBC Lab Routine Hot flashes Expected: 02/03/2022, Expires: 04/05/2022 [facility] Work Phone: Immunizations Immunization Date Immunization Notes Care Provider Fa cilibernarda 11-13-2009 tetanus toxoid, redu delphine diphtheria toxoid, and acellular pertussis vaccine, adsorbed Violet Gong MD Work Phone: [facility] Work Phone: 06-01-2005 influenza virus vaccine, whole virus Violet Gong MD Work Phone: [facility] 03-27-1999 hepatitis B vaccine, adult dosage Violet Gong MD Work Phone: [facility] Work Phone: 11-12-1998 hepatitis B vaccine, adult dosage Violet Gong MD Work Phone: [facility] Work Phone: 10-15-1998 hepatitis B vaccine, adult dosage Violet Gong MD Work Phone: [facility] Work Phone: 09-10-1996 measles, mumps and rubella virus vaccine Violet Gong MD Work Phone: [facility] Work Phone: 09-10-1996 tetanus and diphther ia toxoids, adsorbed, preservative free, for adult use (2 Lf of tetanus toxoid and 2 Lf of diphtheria toxoid) Violet Gong MD Work Phone: [facility] Work Phone: 09-16-1983 diphtheria, tetanus toxoids and pertussis vaccine Violet Gong MD Work Phone: [facility] Work Phone: 09-16-1983 trivalent poliovirus vaccine, live, oral Violet Gong MD Work Phone: [facility] Work Phone: 10-09-1979 diphtheria, tetanus toxoids and pertussis vaccine Violet Gong MD Work Phone: [facility] Work Phone: 10-09-1979 trivalent poliovirus vaccine, live, oral Violet Gong MD Work Phone: [facility] Work Phone: 06-30-1979 measles, mumps and rubella virus vaccine Violet Gong MD Work Phone: [facility] Work Phone: 1980 diphtheria, tetanus toxoids and pertussis vaccine Violet Gong MD Work Phone: [facility] Work Phone: 1980 trivalent poliovirus vaccine, live, oral Violet Gong MD Work Phone: [facility] Work Phone: 1980 diphtheria, tetanus toxoids and pertussis vaccine Violet Gong MD Work Phone: [facility] Work Phone: 1980 trivalent poliovirus vaccine, live, oral Violet Gong MD Work Phone: [facility] Work Phone: 1980 diphtheria, tetanus toxoids and pertussis vaccine Violet Gong MD Work Phone: [facility] Work Phone: 1980 trivalent poliovirus vaccine, live, oral Violet Gong MD Work Phone: [facility] Work Phone: Payers Date Payer Category Payer Unknown MMO MMO [employer] [id number] 2018-Present [phone] [address] [place] [address] PPO [id number] 2018 Unknown [id number] Social History Date Type Detail Facility Start: 02-03-2022 Tobacco smoking stat us NHIS Ex-smoker [facility] End: 11-21-2009 History of tobacco use Current smoker [facility] End: 11-21-2009 History of tobacco use Cigarette Smoker [facility] Start: 02-03-2022 Cigarettes smoked current (pack per day) - Reported 0.5 [facility] Start: 02-03-2022 Tobacco use and exposure Smokeless t obacco non-user [facility] Start: 02-03-2022 Alcohol intake Current drinke r of alcohol (finding) [facility] Start: 04-21-2012 Alcohol Comment [facility] Start: 1980 Sex Assigned At Not on file [facility] Start: 01-24-2022 End: 02-03-2022 Exposure to SARS-CoV-2 (event) Not sure [facility] Progress note 04-15-2023 Note Date & Type Note Facility 04-15-2023 Note HNO ID: [id number] Author: Namrata Ricketts APRN.[employer] Service: ? Author Type: Nurse Practitioner Type: Progress Notes Filed: 04/15/2023 8:10 AM Note Text: patient declined head of research & insights Adeola is a 43 year old who presents for an annual gynecologic exam with complaints, of hot flashes and vaginal dryness. Menses: cycles every 30 days and 5-6 days of flow. Contraception: vasectomy HPV vaccine: No Last Pap: 12/16/2020 normal HPV: 12/15/2020 negative History of abnormal pap: No Last mammogram: [facility] Sexually active: Yes History of STDS: None Patient concerns for STD exposure: No. 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 NEURO: alert and oriented x3,exam grossly non-focal EXTREMITIES: normal ASSESSMENT/PLAN: 1) Health maintenance: Pap/HPV up to date 2020. Deferred until 2025. Mammogram ordered for [facility]. Nutrition, exercise and routine health maintenance exams [...] 12 pounds with lifestyle changes. Namrata Ricketts APRN.[facility] History of Present illness Narrative 02-03-2022 [...] L2 SAB0 IAB0 Ectopic0 Multiple0 Live Births2 Public Relations Player History LMP: 01/20/2022 (Within Days), Having periods Age at Menarche: Age at First : Age at Menopause: Public Relations Player History Comments: Sexual Activity: Yes; Male Contraception: [...] external genitalia normal, normal Bartholin's glands, urethra, Many's glands, no vulvar lesions, no cervical lesions, [...] Violet Gong MD documented in this encounter [facility] History of Past illness Narrative 02-02-2012 Note Date & Type Note Facility documented as of this encounter (statuses as of 02/03/2022) [facility] Evaluation note Note Date & Type Note Facility documented in this encounter [facility] Summary Purpose Family History No Family History [...] or prosecute any alcohol or drug abuse patient.[facility] INFORMATION SOURCE (unrecogn ized section and content) [...] BE BASED ON THE PRIMARY CLINICAL RECORDS. [facility] [employer] [facility]. provides no warranty or guarantee of the accuracy or completeness of information in this document.
[2023-06-27 07:58] VITALS: BP 123/79; PULSE 70; RESP 18; TEMP 36.9; O2SAT 97; BMI 34.8
[2023-06-27] MEDS: Lactated Ringers 1,000 ML 15 ML IV (08:07)
[2023-06-27 08:10] LABS: Internal QC Validated? YES +Cl - CLEAR BKGD; Pregnancy, Urine Negative Negative
[2023-06-27 08:11] LABS: Record Kit Lot#,Urine Preg HCG0000718086
--- NOTE | 2023-06-27 08:30 | RAD_ITS ---
PROCEDURE: Fluoroscopy DATE OF EXAMINATION: 06/27/2023 INDICATION: Female, 43 years old. Left-sided lumbar injection. RADIATION DOSAGE (If Supplied By Facility): ( 2.03 ) mGy COMPARISON: None FINDINGS: 5 fluoroscopic images of the lumbar spine were obtained for needle injection. Examination was performed for documentation only and not for diagnostic purposes. RAD/Fluoro Guided Needle Placement IMPRESSION: Intraprocedural exam as described above. Electronically Signed: Camron Arevalo MD at 11:49 EST ,
[2023-06-27] MEDS: Lidocaine 1% (5 ml sdv) 5 ML Vial (09:18)
[2023-06-27] MEDS: MethylPREDNISolone Acetate 40 MG/ML Vial (09:18)
[2023-06-27 09:26] VITALS: BP 123/79; BP 137/79; PULSE 67; RESP 16; TEMP 36.3; O2SAT 95
--- NOTE | 2023-06-27 09:28 | OP.PCM_ITS ---
Report of Operation Date of Procedure: 06/27/23 Description of Surgical Findings:: PREOPERATIVE DIAGNOSES: 1. Sacroiliitis. 2. Sacroiliac joint dysfunction. POSTOPERATIVE DIAGNOSES: 1. Sacroiliitis. 2. Sacroiliac joint dysfunction. PROCEDURE PERFORMED: Left-sided sacroiliac joint steroid injection under fluoroscopy guidance. ANESTHESIA: MAC. BLOOD LOSS: Minimal. COMPLICATIONS: None. DESCRIPTION OF PROCEDURE: History and physical of today was reviewed. Risks and benefits of the procedure were explained. The patient understood and agreed to the procedure. Informed consent was obtained. IV inserted per routine protocol. The patient was taken to the operating room and placed in the prone position with a pillow positioned underneath the abdomen. The left lower back and buttock area was prepped and draped in a sterile fashion using iodine x3. Under fluoroscopy guidance on an AP view, the left SI joint was visualized. The skin and subcutaneous tissue was anesthetized with approximately 3 mL of 1% lidocaine using a 25-gauge regular needle. Under direct visualization with fluoroscopy at approximately 15-degree angle, using a 22-gauge 3-1/2-inch spinal needle, the needle was advanced via the skin. The tip of the needle was maneuvered and directed towards the inferior one-third of the posterior SI joint. Once the tip of the needle was at the vicinity of the joint, after negative aspiration for blood or CSF, a total of 1 mL of contrast was injected to confirm correct placement of the needle as well as cephalocaudal spread. Confirmation was obtained on AP as well as oblique view. After repeated negativ e aspiration and confirmation, a total of 4 mL of preservative-free 0.25% Marcaine with 40 mg of Depo-Medrol was injected in and around the SI joint. The needle was then removed intact. The patient experienced no sign or symptoms of intrathecal or intravascular injection. The patient experienced no paresthesia. The procedure was completed without any apparent difficulty or any complications. The patient appeared to tolerate it well. ASSESSMENT AND PLAN: This is a 43-year-old female with sacroiliitis, sacroiliac joint dysfunction status post left-sided sacroiliac joint steroid injection under fluoroscopic guidance, patient will continue her current medications, patient will follow in approximately 2 weeks for reevaluation.
[2023-06-27 09:30] VITALS: BP 123/79; BP 136/85; PULSE 68; RESP 16; O2SAT 95
[2023-06-27 09:35] VITALS: BP 123/79; BP 139/78; PULSE 66; RESP 16; TEMP 36.3; O2SAT 94
[2023-06-27 09:55] VITALS: BP 123/79
== END 2023-06-27 09:56 | disposition home or self-care (01) ==
LOC: SDC 07:40 → AC 07:41
PROVIDERS: Anesthesiology; PCP Family Medicine; Referring Provider Anesthesiology Pain Medicine; Visit Provider Anesthesiology Pain Medicine
PROC: 3E0U3GC Introduction of Other Therapeutic Substance into Joints, Percutaneous Approach (ICD-10-PCS; CPT 27096; principal; 2023-06-27 09:25)
DX: M46.1 Sacroiliitis, not elsewhere classified (principal); M53.3 Sacrococcygeal disorders, not elsewhere classified; M51.17 Intervertebral disc disorders with radiculopathy, lumbosacral region; M47.27 Other spondylosis with radiculopathy, lumbosacral region; Z79.899 Other long term (current) drug therapy; Z87.891 Personal history of nicotine dependence
CPT/HCPCS: 27096; 76000; 77002; 81025; J7120

== ENCOUNTER 2023-09-27 08:05 | Day surgery (SDC) | payer OTHER, SELFPAY ==
[2023-09-27 08:22] VITALS: BP 128/83; PULSE 68; RESP 16; TEMP 36.9; O2SAT 97; BMI 34.8
[2023-09-27 08:22] LABS: Internal QC Validated? YES +Cl - CLEAR BKGD; Pregnancy, Urine Negative Negative
[2023-09-27] MEDS: Lactated Ringers 1,000 ML 15 ML IV (08:26)
--- NOTE | 2023-09-27 09:15 | COLBX_PTH ---
PATIENT: DAVE SAEZ LOC: EN U#:[id number] AGE/SX: 43/F ROOM: RE09/27/[address]: Dr. Prosper Calhoun MD : 1980 BED: DIS: 09/27/2023 SPEC #: [id number] RECD: 09/27/23 10:50 STATUS: SHANDRA AMBROSE #: [id number] LETY: 09/27/23 09:[address]: Prosper Calhoun DEPT: SURGICAL PATHOLOGY RECD BY: Luann Santillan ENTERED: 09/27/23 11:54 SP TYPE: COLON BX OTHR DR: Dr. Brigid Phelan MD Tissues: Rectum, NOS Procedures: Surgery Specimen Level IV HEADER OPERATION: Colonoscopy with polypectomy PRE-OP DIAGNOSIS: Encounter for screening for malignant neoplasm of colon TISSUE SUBMITTED: Rectum polyps x2 MICROSCOPIC DIAGNOSIS Rectal polyps, biopsy: Tubular adenoma. AM/mr 09/28/2023 MICROSCOPIC DESCRIPTION Slides are reviewed. GROSS DESCRIPTION Received in fixative is one container labeled with the patient's name and designated Rectal polyp x2. The specimen consists of two irregular fragments of light polanco soft tissue that in aggregate measure 0.8 x 0.3 x 0.2 cm. The specimen is totally submitted in one cassette. DEJAN/ 09/27/2023 TC:5 CPT:82872
--- NOTE | 2023-09-27 09:19 | H&P.OPEN ---
HPI - General HPI Narrative DAVE SAEZ, is a 43 F who presents for screening colonoscopy. She has never had one in the past. She denies abdominal pain or blood in the stool. No family history of colon cancer. PFSH Medical History Wears glasses History of steroid therapy Arthritis Heartburn Former smoker History of pain when walking History of stress test Interstitial cystitis Reactive cervical lymphadenopathy Enlargement of lymph node GERD (gastroesophageal reflux disease) Acne Home Medications ?Medication ?Instructions ?Recorded ?Last Taken ?Type cholecalciferol (vitamin D3) 25 50 mcg PO DAILY 02/04/20 09/24/23 History mcg (1,000 unit) capsule phenazopyridine 100 mg tablet 100 mg PO TID PRN Bladder Spasm 02/04/20 Unknown History (Pyridium) adapalene 0.3 %-benzoyl peroxide 1 gm topical DAILY 05/21/22 09/26/23 History 2.5 % topical gel with pump (Epiduo Forte) cyclobenzaprine 10 mg tablet 10 mg PO HS PRN MUSCLE SPASMS 05/21/22 Unknown History magnesium 250 mg tablet 250 mg PO DAILY 09/22/23 09/24/23 History Allergy/AdvReac Type Severity Reaction Status Date / Time albuterol (From Ventolin HFA) Allergy Mild unknown Verified 09/27/23 08:15 Penicillins Allergy Mild rash Verified 09/27/23 08:15 Family History (Updated 08/05/23 @ 14:16 by Maci Skinner) Mother Diabetes Hypertension Thyroid disorder Colon polyps Father Colon polyps Surgical History History of carpal tunnel surgery of left wrist No significant past surgical history Social History (Updated 08/05/23 @ 14:43 by Maci Skinner) household members: spouse and children current occupational status: employed 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 Smoking Status: Former smoker alcohol intake: never substance use type: does not use what type of physical activity do you participate in: walking, yoga and additional details: treadmill, elliptical do you feel safe at home: Yes Past Medical/Surgical History Planned Operation Planned Operative Procedure(s): COLONOSCOPY S.O.S: No Previous Hospitalizations/Surgeries HX Hospitalizations: No HX of Surgeries: na Any Problems With Anesthesia: No You/Your Family Experience Fever (Hyperthermia) With Anes: No Cholinesterase deficiency: No Cardiovascular Hx Chest Pain within Last 2 months: No Hx of Irregular Heartbeat and/or Afib: No Hx Heart Attack: No Hx Congestive Heart Failure: No Hx Rheumatic Fever: No Hx Hypertension: No Hx Internal Defibrillator: No Hx Pacemaker: No Hx Cardiac Catheterization: No Hx Cardiac Surgery/Stents/Etc.: No Hx Stress Test: No Hx Pain in Legs when Walking/Leg Cramps: No Respiratory Chronic Cough: No HX of Shortness of Breath: No Hoarseness: No Hx Chronic Obstructive Pulmonary Disease (COPD): No Hx Asthma: No Hx Emphysema: No Hx Sleep Apnea: No Hx Respiratory Tract Infection/Cold (presently): No Do You Snore Loudly (louder than talking or can be heard): No Do You Often Feel Tired/ Fatigued/ Sleepy Dring Daytime?: No Has Anyone Observed You Stop Breathing During Sleep?: No Result (for STOP score): Negative Hx Smoking: Yes (quit 2009) Smoking Status: Former smoker Gastrointestinal Hx Gastrointestinal Disorders: No Hx Gastrointestinal Bleed: No (hx gastritis) Hx Ulcer: No Hx Hiatal Hernia: No Difficulty Chewing/Swallowing: No Special diet followed at home: No Hx Unplanned Weight Loss of 20#: No HX Unplanned Weight Gain of 20#: No Neurological Hx Seizures: No HX Syncope/Blackout Spells/Unconsciousness: Yes (passed out in high school yrs ago) Hx Transient Ischemic Attacks (TIA): No Hx Multiple Sclerosis: No Hx Parkinson's Disease: No Hx Head/Neck Injury: No Hx Headaches: Yes (occ) Hx Back Injury/Pain: No Recent Onset of Speech Difficulty: No Restless Legs: No Does patient have nerve stimulator: No Blood Disorder Hx Leukemia: No Bleeding Tendencies: No Hx Deep Vein Thrombosis: No Hx High Cholesterol: No Blood Transmitted Disease: No Hx Hepatitis: No Hx Cirrhosis: No Hx Anemia: No Hx Blood Disorders: No Reproduction Is Patient Lactating: No Hx Hysterectomy: No Hx Tubal Ligation: No Are You Post Menopause: No Genitourinary Hx Renal Disease: No (interstitial cystitis) Musculoskeletal Hx Arthritis: No Hx Rheumatoid Arthritis: No Hx Gout: No Recent Onset of an Orthopedic Problem: No Endocrine Hx Diabetes: No Thyroid Disease: No Hx Steroid Therapy: No Psycho/Social Hx Substance Use: No Hx Alcohol Use: Yes (occ) Hx Anxiety: No Hx Depression: No Mental Illness: No Hx Dementia: No Miscellaneous Hx Cancer: No Recent Exposure to Contagious Disease: No Hx of C-Diff: No Any Loose Teeth: No Allergies albuterol (From Ventolin HFA) Allergy (Mild, Verified 09/27/23 08:15) unknown Penicillins Allergy (Mild, Verified 09/27/23 08:15) rash Discharge After D/C, Where Do you Plan to Go: Return Home Vital Signs Vital Signs Vital Signs: 09/27/23 08:22 09/27/23 08:22 Temperature 98.5 F Temperature Source Temporal Pulse Rate 68 Respiratory Rate 16 Respiratory Pattern Normal Blood Pressure 128/83 H Blood Pressure Mean 98 Blood Pressure Source Monitor Blood Pressure Position Semi-Fowlers Blood Pressure Location Left Arm Pulse Ox 97 Oxygen Delivery Method Room Air Weight Weight: 209 lb 7.026 oz Body Mass Index (BMI) 34.8 Physical Exam Const alert and oriented x3 HEENT normocephalic Eyes PERRL Resp normal respiratory effort and normal air movement Cardio regular rate and regular rhythm GI soft to palpation, non-tender and non-distended Extremity normal to inspection Assessment & Plan Assessment/Plan (1) Encounter for screening for malignant neoplasm of colon: PLAN: I explained endoscopy in detail to the patient. I explained the risks including but not limited to stroke or heart attack with anesthesia, perforation of the GI tract, bleeding, infection. I explained that any of these could necessitate further emergency surgery. The patient understands and all questions were answered sufficiently. The patient wishes to proceed with procedure. Prosper Calhoun MD Pager: [facility] [address] [place] [address] [address] [place] [address] Office: Surgery Risks - Colonoscopy Risks Include but are not Limited To: Risks include but are not limited to: Bleeding, perforation requiring further surgery, inability to complete colonoscopy requiring barium enema.
--- NOTE | 2023-09-27 09:45 | OP.CCLET_ITS ---
09/27/2023 Brigid Phelan [address] [place] [address] Re : Colonoscopy procedure for Adeola Klein Dear Dr. Phelan This procedure was performed on Wednesday, September 27, 2023. My impressions and recommendations are as follows: Impressions : - Two small polyps in the rectum, removed with a hot snare. Resected and retrieved. - The examination was otherwise normal on direct and retroflexion views. Recommendations : - Discharge patient to home. - Resume previous diet. - Continue present medications. - Await pathology results. - Repeat colonoscopy in 5 years for surveillance based on pathology results. My findings are described in the full procedure note, which is enclosed. If I can be of further assistance, please feel free to contact me at Doctor phone number(s): , Work: . Sincerely, Prosper Calhoun MD 09/27/2023 9:44:55 AM This report has been signed electronically.
--- NOTE | 2023-09-27 09:45 | OP.COLON_ITS ---
Patient Name: Adeola Klein Procedure Date: 09/27/2023 9:24 AM Date of : 1980 Age: 43 Procedure: Colonoscopy Indications: Screening for colorectal malignant neoplasm Providers: Prosper Calhoun MD Medicines: Propofol per Anesthesia Patient Profile: This is a 43 year old female. Refer to note in patient chart for documentation of history and physical. Last Colonoscopy: none. The patient's first colonoscopy is today. Complications: No immediate complications. Procedure: Pre-Anesthesia Assessment: - Prior to the procedure, a History and Physical was performed, and patient medications and allergies were reviewed. The patient's tolerance of previous anesthesia was also reviewed. The risks and benefits of the procedure and the sedation options and risks were discussed with the patient. All questions were answered, and informed consent was obtained. Prior Anticoagulants: The patient has taken no anticoagulant or antiplatelet agents. After reviewing the risks and benefits, the patient was deemed in satisfactory condition to undergo the procedure. After I obtained informed consent, the scope was passed under direct vision. Throughout the procedure, the patient's blood pressure, pulse, and oxygen saturations were monitored continuously. The Colonoscope was introduced through the anus and advanced to the cecum, identified by appendiceal orifice and ileocecal valve. The colonoscopy was performed without difficulty. The patient tolerated the procedure well. The quality of the bowel preparation was good. The ileocecal valve, appendiceal orifice, and rectum were photographed. Scope In: 9:31:58 AM Scope Withdrawal Time 0 hours 4 minutes 25 seconds Scope Out: 9:42:30 AM Total Procedure Duration Time 0 hours 10 minutes 32 seconds Findings: Two polyps were found in the rectum. The polyps were small in size. These polyps were removed with a hot snare. Resection and retrieval were complete. The exam was otherwise without abnormality on direct and retroflexion views. Impression: - Two small polyps in the rectum, removed with a hot snare. Resected and retrieved. - The examination was otherwise normal on direct and retroflexion views. Recommendation: - Discharge patient to home. - Resume previous diet. - Continue present medications. - Await pathology results. - Repeat colonoscopy in 5 years for surveillance based on pathology results. Procedure Code(s): --- Professional --- 98839, 33, Colonoscopy, flexible; with removal of tumor(s), polyp(s), or other lesion(s) by snare technique Diagnosis Code(s): --- Professional --- Z12.11, Encounter for screening for malignant neoplasm of colon D12.8, Benign neoplasm of rectum CPT copyright 2021 [employer]. All rights reserved. The codes documented in this report are preliminary and upon spectroscopist review may be revised to meet current compliance requirements. Prosper Calhoun MD 09/27/2023 9:44:55 AM This report has been signed electronically. Number of Addenda: 0 Note Initiated On: 09/27/2023 9:24 AM
[2023-09-27 09:48] VITALS: BP 100/57; BP 128/83; PULSE 56; RESP 16; TEMP 36.3; O2SAT 96
[2023-09-27 09:50] VITALS: BP 104/66; BP 128/83; PULSE 54; RESP 16; O2SAT 100
[2023-09-27 09:55] VITALS: BP 128/83; BP 99/65; PULSE 57; RESP 18; O2SAT 99
[2023-09-27 10:00] VITALS: BP 100/67; BP 128/83; PULSE 53; RESP 16; TEMP 36.7; O2SAT 99
[2023-09-27 10:11] VITALS: BP 128/83
== END 2023-09-27 10:25 | disposition home or self-care (01) ==
LOC: EN 08:06 → AC 08:07
PROVIDERS: Anesthesiology; PCP Family Medicine; Referring Provider Family Medicine; Visit Provider Surgery
PROC: 0DJD8ZZ Inspection of Lower Intestinal Tract, Via Natural or Artificial Opening Endoscopic (ICD-10-PCS; CPT 45378; principal; 2023-09-27 09:10)
DX: Z12.11 Encounter for screening for malignant neoplasm of colon (principal); K62.1 Rectal polyp; Z87.891 Personal history of nicotine dependence
CPT/HCPCS: 45385; 81025; 88305; J7120; J2405

== ENCOUNTER 2024-04-30 08:58 | Day surgery (SDC) | payer OTHER, SELFPAY ==
[2024-04-30] VITALS (8 sets, daily range): BP systolic 105–124; BP diastolic 68–81; PULSE 57–76; RESP 16; TEMP 36.4–36.7; O2SAT 93–96; BMI 37.0
[2024-04-30 09:30] LABS: Internal QC Validated? YES +Cl - CLEAR BKGD; Pregnancy, Urine Negative Negative
--- NOTE | 2024-04-30 09:35 | PRE.ANES_ITS ---
ASA Classification* ASA Classification ASA Classification: 2 Assessment & Plan Anesthesia* Anesthesia Assessment Anesthesia Assessment: Discussed sedation and/or anesthesia options, risks, benefits, and alternatives with patient/parents/legal guardian/POA. Questions invited. The patient/parents/legal guardian/POA seems to understand and agrees to proceed with anesthesia plan. Reviewed the physical assessment, medical history, allergy history and patient home medications list prior to surgery/procedure/anesthetic and documented any changes. Performed airway and anesthesia risk assessments. Anesthesia Type Anesthesia Type: MAC Anesthesia Focused Assessment* Temperature: 97.6 F Pulse Rate: 76 Blood Pressure: 124/76 Respiratory Rate: 16 Pulse Ox: 96 Airway Assessment Mouth opens: >3 cm Mallampati Score: II Focused Labs Anesthesia Preop lab: CBC WBC 7.9 K/mm3 (4.4-11.0) 06/07/23 07:33 RBC 4.59 M/mm3 (4.2-5.4) 06/07/23 07:33 Hgb 13.1 g/dL (12.0-15.0) 06/07/23 07:33 Hct 40.5 % (37-47) 06/07/23 07:33 Plt Count 322 K/mm3 (150-450) 06/07/23 07:33 CHEMISTRY Potassium 4.1 mmol/L (3.5-5.1) 06/07/23 07:33 Sodium 142 mmol/L (136-145) 06/07/23 07:33 BUN 10 mg/dL (7-18) 06/07/23 07:33 Creatinine 0.74 mg/dL (0.55-1.02) 06/07/23 07:33 Glucose 109 mg/dL (74-106) H 06/07/23 07:33 TSH 1.34 uIU/mL (0.358-3.74) 06/07/23 07:33 COAG Urine Test Negative Negative 04/30/24 09:15 Tst Clinic Negative 08/13/22 07:02 Pre-Assessment Diagnosis/Proposed Procedure Planned Operative Procedure(s): left sacral iliac joint injection Anesthesia History 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 When Was Last Pacemaker Check QUESTION #4 FULL TEXT: You/Your Family Experience fever (hyperthermia) with Anesthesia Last Oral Intake Last Oral intake: Last Oral Intake NPO since 00:00 04/30/24 09:27 Meds taken in AM with sips of No 04/30/24 09:27 water? Meds patient instructed to take am of surgery PONV PONV - dry kiln burner: PONV - dry kiln burner Female HX of Motion Sickness HX of N/V After Surgery Non-Smoker Duration of Surgery greater than 60 minutes Number of Risk Factors PONV Score Height & Weight Height & Weight: Anesthesia: Height & Weight Height 5 ft 5 in 04/30/24 09:27 Weight: 100.924 kg 04/30/24 09:27 Body Mass Index (BMI) 37.0 04/30/24 09:27 Respiratory Assessment Respiratory Assessment - dry kiln burner: Respiratory Tract Infection Hx - dry kiln burner Hx Respiratory Tract Infection No 09/27/23 09:20 STOP Sleep Apnea STOP Sleep Apnea - dry kiln burner: STOP Sleep Apnea - dry kiln burner Hx Hypertension No 09/27/23 09:20 Hx Sleep Apnea No 09/27/23 09:20 CPAP BIPAP Do you snore loudly (louder than talking or can be heard Do you often feel tired/ fatigued/ sleepy during daytime? Has anyone observed you stop breathing during sleep? STOP Results QUESTION #5 FULL TEXT : Do you snore loudly (louder than talking or can be heard through closed doors)? 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 Specify any problems Hx of Preganancy in last 3 Months Nurse Filling Out Transfusion & Questions: Date: Time: Patient unable to answer at this time (ie. confused, unrespo /Reproduction History /Reproductive History - dry kiln burner: /Reproductive Hx- dry kiln burner Hx Now Gestational Age (in weeks): EDC: Hx Hx Para Hx Section SAB No 07/22/22 10:53 PFSH Medical History Wears glasses History of steroid therapy Arthritis Heartburn Former smoker History of pain when walking History of stress test Interstitial cystitis Reactive cervical lymphadenopathy Enlargement of lymph node GERD (gastroesophageal reflux disease) Acne Home Medications ?Medication ?Instructions ?Recorded ?Last Taken ?Type cholecalciferol (vitamin D3) 25 50 mcg PO DAILY 02/04/20 04/29/24 History mcg (1,000 unit) capsule phenazopyridine 100 mg tablet 100 mg PO TID PRN Bladder Spasm 02/04/20 04/29/24 History (Pyridium) adapalene 0.3 %-benzoyl peroxide 1 gm topical DAILY 05/21/22 04/29/24 History 2.5 % topical gel with pump (Epiduo Forte) cyclobenzaprine 10 mg tablet 10 mg PO HS PRN MUSCLE SPASMS 05/21/22 04/29/24 History magnesium 250 mg tablet 250 mg PO DAILY 09/22/23 04/29/24 History Allergy/AdvReac Type Severity Reaction Status Date / Time albuterol (From Ventolin HFA) Allergy Mild unknown Verified 04/30/24 09:27 Penicillins Allergy Mild rash Verified 04/30/24 09:27 Family History Mother Diabetes Hypertension Thyroid disorder Colon polyps Father Colon polyps Surgical History History of carpal tunnel surgery of left wrist No significant past surgical history Social History household members: spouse and children 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
--- NOTE | 2024-04-30 10:47 | RAD_ITS ---
STUDY: LEFT SACROILIAC JOINT INJECTION. REASON FOR EXAM: Female, 44 years old. LT SI JT INJECTION FLUOROSCOPY TIME (if supplied): ( 4 seconds ) minutes/seconds. 1.49 mGy. Intraoperative imaging provided for left sacroiliac joint injection. RAD/Fluoro Guided Needle Placement IMPRESSION: Fluoroscopic services provided for left sacroiliac joint injection. Electronically Signed: Carlos Babb MD at 12:01 EST ,
--- NOTE | 2024-04-30 10:57 | OP.PCM_ITS ---
Operative Report (Standard) Operative Information Date of Procedure: 04/30/24 Pre-Operative Diagnosis: 1 Post-Operative Diagnosis: 1 Surgery/Procedure Performed: 1 inspector health care facilities: No Type of Anesthesia: MAC and Topical Anesth RN Documented Start/Stop Times: Operation Date: 04/30/24 10:40 Case Time Into Pre-Op 04/30/24 09:09 Out of Pre-Op 04/30/24 10:43 Anesthesia Start 04/30/24 10:46 Into Room 04/30/24 10:46 Procedure Start 04/30/24 10:52 Procedure End 04/30/24 10:56 Procedure Start Time: 10:57 Procedure Stop Time: 10:57 Select all DRAINS/GRAFTS/IMPLANTS that apply: None Estimated Blood Loss: 1 Specimen collected: No Description of surgery: PREOPERATIVE DIAGNOSES: 1.Sacroiliitis. 2.Sacroiliac joint dysfunction. POSTOPERATIVE DIAGNOSES: 1.Sacroiliitis. 2.Sacroiliac joint dysfunction. PROCEDURE PERFORMED: Left-sided sacroiliac joint steroid injection under fluoroscopy guidance. ANESTHESIA: MAC. BLOOD LOSS: Minimal. COMPLICATIONS: None. DESCRIPTION OF PROCEDURE: History and physical of today was reviewed. Risks and benefits of the procedure were explained. The patient understood and agreed to the procedure. Informed consent was obtained. IV inserted per routine protocol. The patient was taken to the operating room and placed in the prone position with a pillow positioned underneath the abdomen. The left lower back and buttock area was prepped and draped in a sterile fashion using iodine x3. Under fluoroscopy guidance on an AP view, the left SI joint was visualized. The skin and subcutaneous tissue was anesthetized with approximately 3 mL of 1% lidocaine using a 25-gauge regular needle. Under direct visualization with fluoroscopy at approximately 15-degree angle, using a 22-gauge 3-1/2-inch spinal needle, the needle was advanced via the skin. The tip of the needle was maneuvered and directed towards the inferior one-third of the posterior SI joint. Once the tip of the needle was at the vicinity of the joint, after negative aspiration for blood or CSF, a total of 1 mL of contrast was injected to confirm correct placement of the needle as well as cephalocaudal spread. Confirmation was obtained on AP as well as oblique view. After repeated negative aspiration and confirmation, a total of 4 mL of preservative-free 0.25% Marcaine with 40 mg of Depo-Medrol was injected in and around the SI joint. The needle was then removed intact. The patient experienced no sign or symptoms of intrathecal or intravascular injection. The patient experienced no paresthesia. The procedure was completed without any apparent difficulty or any complications. The patient appeared to tolerate it well. ASSESSMENT AND PLAN: This is a 44-year-old female with sacroiliitis, sacroiliac joint dysfunction status post left-sided sacroiliac joint steroid injection under fluoroscopic guidance, patient will continue her current medications, patient will follow in approximately 2 weeks for reevaluation. Surgical Findings: 1 Complications Complications: No Admit VTE Documentation VTE Present on Admission: No VTE Mechan Device Prophylaxis: None VTE Pharm Prophylaxis ordered?: No
--- NOTE | 2024-04-30 14:09 | PCM.POST.ANE ---
Anesthesia: Postop Eval I Current Vital Signs Temperature: 98.1 F Pulse Rate: 59 Blood Pressure: 124/81 Respiratory Rate: 16 Pulse Ox: 94 Oxygen Delivery Method: Room Air Assessment Airway patent: Yes Spontaneous unlabored respirations: Yes Mental status: Awake and Calm nausea: No Vomiting: No Anesthesia Complication: No Fluid Hydration Crystalloid volume administer (ml): 30 Total IV fluid infused: 30 Progress Note Anesthesia document: Postop Eval 1 completed: Yes
--- NOTE | 2024-04-30 14:13 | POSTOPAN2_ITS ---
Anesthesia Postop Eval I Sum Postop Eval Completion status Anesthesia document: Postop Eval 1 completed: Yes Anesthesia Postop Eval I Summary Anesthesia Postop Eval I Summary: Anesthesia Postop Eval I: Assessment Summary Airway patent Yes 04/30/24 14:10 CLINICAL TRIAL [email or web address] Spontaneous unlabored Yes 04/30/24 14:10 CLINICAL TRIAL [email or web address] respirations Mental status Awake,Calm 04/30/24 14:10 CLINICAL TRIAL [email or web address] nausea No 04/30/24 14:10 CLINICAL TRIAL [email or web address] Vomiting No 04/30/24 14:10 CLINICAL TRIAL [email or web address] Anesthesia Postop Eval I: Fluid Summary Crystalloid volume administer 30 04/30/24 14:10 CLINICAL TRIAL [email or web address] (ml) Colloids volume administered ( ml) Blood Product volume administered (ml) Total IV fluid infused 30 04/30/24 14:10 CLINICAL TRIAL [email or web address] Anesthesia Postop Eval I: Summary Notes Anesthesia Complication No 04/30/24 14:10 CLINICAL TRIAL [email or web address] Anesthesia Complication Comment: Post-operative progress note Anesthesia: Postop Eval II Evaluation Mental status: Awake and Calm Pain Level: 1 nausea: No Vomiting: No Complications Anesthesia Complication: No
--- NOTE | 2024-04-30 14:13 | PCM.POSTANE2 ---
Anesthesia Postop Eval I Sum Postop Eval Completion status Anesthesia document: Postop Eval 1 completed: Yes Anesthesia Postop Eval I Summary Anesthesia Postop Eval I Summary: Anesthesia Postop Eval I: Assessment Summary Airway patent Yes 04/30/24 14:10 SPECIFICATION [email or web address] Spontaneous unlabored Yes 04/30/24 14:10 SPECIFICATION [email or web address] respirations Mental status Awake,Calm 04/30/24 14:10 SPECIFICATION [email or web address] nausea No 04/30/24 14:10 SPECIFICATION [email or web address] Vomiting No 04/30/24 14:10 SPECIFICATION [email or web address] Anesthesia Postop Eval I: Fluid Summary Crystalloid volume administer 30 04/30/24 14:10 SPECIFICATION [email or web address] (ml) Colloids volume administered ( ml) Blood Product volume administered (ml) Total IV fluid infused 30 04/30/24 14:10 SPECIFICATION [email or web address] Anesthesia Postop Eval I: Summary Notes Anesthesia Complication No 04/30/24 14:10 SPECIFICATION [email or web address] Anesthesia Complication Comment: Post-operative progress note Anesthesia: Postop Eval II Evaluation Mental status: Awake and Calm Pain Level: 1 nausea: No Vomiting: No Complications Anesthesia Complication: No
== END 2024-04-30 11:42 | disposition home or self-care (01) ==
LOC: SDC 08:59 → AC 09:27
PROVIDERS: Anesthesiology; PCP Family Medicine; Referring Provider Anesthesiology Pain Medicine; Visit Provider Anesthesiology Pain Medicine
PROC: 3E0U3GC Introduction of Other Therapeutic Substance into Joints, Percutaneous Approach (ICD-10-PCS; CPT 27096; principal; 2024-04-30 10:35)
DX: M46.1 Sacroiliitis, not elsewhere classified (principal); K21.9 Gastro-esophageal reflux disease without esophagitis; Z79.899 Other long term (current) drug therapy; Z87.891 Personal history of nicotine dependence
CPT/HCPCS: 27096; 01250; 76000; 77002; 81025; A4216

== ENCOUNTER → 2024-06-19 | Outpatient (CLI) | payer OTHER, SELFPAY ==
--- NOTE | 2024-06-19 10:19 | BI_ITS ---
PROCEDURE: SCRN MAMM (CAD)W/ERICK BILAT REASON FOR EXAM: F, Age 44 y/o , presents for annual screening mammogram. No family history of breast cancer. TECHNIQUE: Bilateral screening digital breast tomosynthesis with 2D and 3D images. Computer aided detection. COMPARISON: 05/27/2023, 03/01/2022 FINDINGS: The breasts are heterogeneously dense which may obscure small masses. The mammogram demonstrates that the patient has dense breasts. Supplemental screening with whole breast ultrasound or MRI may be considered for further evaluation. No suspicious masses, areas of developing architectural distortion, or suspicious calcifications. BI/SCRN MAMM (CAD)W/ERICK BILAT IMPRESSION: There is no evidence of malignancy in either breast. . BI-RADS 1: NEGATIVE. RECOMMEND ANNUAL MAMMOGRAPHIC SCREENING. Follow-up code: Routine Follow-up The patient will be notified of the results by letter. Reading Location: [id number]
== END | disposition home or self-care (01) ==
PROVIDERS: PCP Family Medicine; Referring Provider Nurse Practitioner Women's Health; Visit Provider Nurse Practitioner Women's Health
DX: Z12.31 Encounter for screening mammogram for malignant neoplasm of breast (principal)
CPT/HCPCS: 77063; 77067

== ENCOUNTER → 2024-09-24 | Outpatient (CLI) | payer OTHER, SELFPAY ==
[2024-09-24 12:59] LABS: ALB/GLOB Ratio 1.5 RATIO (0.9-2.4); AST(SGOT) 14 U/L (<=31); Alanine Aminotransfer ALT/SGPT 11 U/L (<=34); Albumin, Serum 4.3 g/dL (3.5-5.0); Alkaline Phosphatase 78 U/L (35-104); Anion Gap 11 (5-15); BUN 9 mg/dL (4-19); BUN/Creat Ratio 13.7 RATIO (10-20); Calcium,Total 8.9 mg/dL (7.6-11.0); Carbon Dioxide 21.1 mmol/L (21.0-32.0); Chloride 107 mmol/L (98-108); Cholesterol 245 mg/dL (<=200); Creatinine, Serum 0.69 mg/dL (0.70-1.20); EST Glomerular Filtration Rate 108 (>60); Globulin 2.9 g/dL (2.2-4.2); Glucose 101 mg/dL (70-99); High Density Lipoprotein 47 mg/dL; Low Density Lipoprotein Calc. 160 mg/dL; Potassium 4.2 mmol/L (3.3-5.1); Protein, Total 7.2 g/dL (5.9-8.4); Sodium Level 139 mmol/L (133-145); Total Bilirubin 0.25 mg/dL (0.00-1.30); Triglycerides 192 mg/dL; Very Low Density Lipoprotein 38 mg/dL (5-40); Vitamin D,25 Hydroxy 34.5 ng/mL (30-100); cholesterol:hdl ratio screen 5.26
[2024-09-24 13:57] LABS: Absolute Lymphocyte Count 2.56 X10^3/uL (0.83-4.51); Absolute Neutrophil Count 5.6 X10^3/uL (2.0-7.7); Basophil# 0.05 X10^3/uL; Basophil% 0.6 % (0-1); Eosinophil# 0.19 X10^3/uL; Eosinophils% 2.1 % (0-5); Hematocrit 39.5 % (37-47); Hemoglobin 13.2 g/dL (12.0-15.0); Lymphocyte # 2.56 X10^3/ul (0.83-4.51); Lymphocyte % 28.8 % (19-41); Mean Corp Hgb Conc 33.4 g/dL (32-36); Mean Corpuscular Hgb 28.3 pg (27.0-32.0); Mean Corpuscular Volume 84.6 fL (81-99); Mean Platelet Vol. 9.9 fl (6.2-12.0); Monocyte# 0.51 X10^3/uL; Monocyte% 5.7 % (0-10); NRBC Flagged by Analyzer 0 % (0-5); Neutrophil # 5.55 X10^3/uL (2.7-7.7); Neutrophil % 62.4 % (47-70); Platelet Count 345 K/mm3 (150-450); RBC Distribution Width CV 13.3 % (11.6-14.6); RBC Distribution Width SD 41.3 fl (35.1-43.9); Red Blood Count 4.67 M/mm3 (4.2-5.4); White Blood Count 8.9 K/mm3 (4.4-11.0)
== END | disposition home or self-care (01) ==
LOC: MTLAB 10:03
PROVIDERS: PCP Family Medicine; Referring Provider Family Medicine; Visit Provider Family Medicine
DX: Z00.00 Encounter for general adult medical examination without abnormal findings (principal); R07.9 Chest pain, unspecified; E55.9 Vitamin D deficiency, unspecified; R63.5 Abnormal weight gain
CPT/HCPCS: 36415; 80053; 80061; 82306; 84443; 85025

== ENCOUNTER 2024-10-01 12:54 | Outpatient (RCR) | payer OTHER, SELFPAY | END 2024-10-22 23:59 | LOC: NS 12:54 | PROVIDERS: PCP Family Medicine; Referring Provider Family Medicine; Visit Provider Family Medicine | DX: Z71.3 Dietary counseling and surveillance (principal); E66.9 Obesity, unspecified; Z68.36 Body mass index [BMI] 36.0-36.9, adult | CPT/HCPCS: 97802 ==

== ENCOUNTER 2024-10-30 16:01 | Outpatient (RCR) | payer OTHER, SELFPAY | END 2024-11-22 23:59 | LOC: NS 16:01 | PROVIDERS: PCP Family Medicine; Referring Provider Family Medicine; Visit Provider Family Medicine | DX: Z71.3 Dietary counseling and surveillance (principal); E66.9 Obesity, unspecified; Z68.37 Body mass index [BMI] 37.0-37.9, adult | CPT/HCPCS: 97803 ==

== ENCOUNTER 2024-11-12 09:36 | Day surgery (SDC) | payer OTHER, SELFPAY ==
[2024-11-12] VITALS (8 sets, daily range): BP systolic 102–120; BP diastolic 58–75; PULSE 63–75; RESP 12–16; TEMP 36.2–37; O2SAT 91–99; BMI 36.8
[2024-11-12 10:14] LABS: Internal QC Validated? YES +Cl - CLEAR BKGD; Pregnancy, Urine Negative Negative; Record Kit Lot#,Urine Preg 962302
--- NOTE | 2024-11-12 10:19 | PCM.PRE.AN2 ---
ASA Classification* ASA Classification ASA Classification: 2 Assessment & Plan Anesthesia* Anesthesia Assessment Anesthesia Assessment: Discussed sedation and/or anesthesia options, risks, benefits, and alternatives with patient/parents/legal guardian/POA. Questions invited. The patient/parents/legal guardian/POA seems to understand and agrees to proceed with anesthesia plan. Reviewed the physical assessment, medical history, allergy history and patient home medications list prior to surgery/procedure/anesthetic and documented any changes. Performed airway and anesthesia risk assessments. Anesthesia Type Anesthesia Type: MAC History Source History Obtained from:: Patient and Chart Anesthesia Focused Assessment* Temperature: 97.6 F Pulse Rate: 75 Blood Pressure: 120/72 Respiratory Rate: 16 Pulse Ox: 99 Oxygen Delivery Method: Room Air Airway Assessment Mouth opens: >3 cm Mallampati Score: III Teeth Condition: Intact Neck Range of motion (ROM): Full ROM Labs Anesthesia Preop lab: CBC WBC 8.9 K/mm3 (4.4-11.0) 09/24/24 10:09/24/24 RBC 4.67 M/mm3 (4.2-5.4) 09/24/24 10:09/24/24 Hgb 13.2 g/dL (12.0-15.0) 09/24/24 10:09/24/24 Hct 39.5 % (37-47) 09/24/24 10:09/24/24 Plt Count 345 K/mm3 (150-450) 09/24/24 10:09/24/24 CHEMISTRY Potassium 4.2 mmol/L (3.3-5.1) 09/24/24 10:09/24/24 Sodium 139 mmol/L (133-145) 09/24/24 10:09/24/24 BUN 9 mg/dL (4-19) 09/24/24 10:09/24/24 Creatinine 0.69 mg/dL (0.70-1.20) L 09/24/24 10:09/24/24 Glucose 101 mg/dL (70-99) H 09/24/24 10:09/24/24 TSH 1.300 uIU/mL (0.300-4.200) 09/24/24 10:09/24/24 COAG Urine Test Negative Negative 11/12/24 09:43 11/12/24 Tst Clinic Negative 08/13/22 07:02 08/13/22 Pre-Assessment Diagnosis/Proposed Procedure Planned Operative Procedure(s): (L) LEFT SACROILIAC JOINT STEROID INJECTION UNDER FLUOROSCOPY Anesthesia History 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 When Was Last Pacemaker Check QUESTION #4 FULL TEXT: You/Your Family Experience fever (hyperthermia) with Anesthesia Last Oral Intake Last Oral intake: Last Oral Intake NPO since 18:00 11/12/24 09:54 Meds taken in AM with sips of No 11/12/24 09:54 water? Meds patient instructed to take am of surgery PONV PONV - refinery operator: PONV - refinery operator Female Yes 11/02/24 14:19 HX of Motion Sickness Yes 11/02/24 14:19 HX of N/V After Surgery No 11/02/24 14:19 Non-Smoker Yes 11/02/24 14:19 Duration of Surgery greater No 11/02/24 14:19 than 60 minutes Number of Risk Factors 3 11/02/24 14:19 PONV Score Moderate Risk 11/02/24 14:19 Height & Weight Height & Weight: Anesthesia: Height & Weight Height 5 ft 5 in 11/12/24 09:54 Weight: 100.4 kg 11/12/24 09:54 Body Mass Index (BMI) 36.8 11/12/24 09:54 Respiratory Assessment Respiratory Assessment - refinery operator: Respiratory Tract Infection Hx - refinery operator Hx Respiratory Tract Infection No 11/02/24 14:19 STOP Sleep Apnea STOP Sleep Apnea - refinery operator: STOP Sleep Apnea - refinery operator Hx Hypertension No 11/02/24 14:19 Hx Sleep Apnea No 11/02/24 14:19 CPAP BIPAP Do you snore loudly (louder No 11/02/24 14:19 than talking or can be heard Do you often feel tired/ No 11/02/24 14:19 fatigued/ sleepy during daytime? Has anyone observed you stop No 11/02/24 14:19 breathing during sleep? STOP Results Negative 11/02/24 14:19 QUESTION #5 FULL TEXT : Do you snore loudly (louder than talking or can be heard through closed doors)? 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 Specify any problems Hx of Preganancy in last 3 No 11/02/24 14:19 Months Nurse Filling Out Transfusion BlancaZOJOSE ARMANDO 11/02/24 14:19 & Questions: Date: 11/02/24 11/02/24 14:19 Time: 14:21 11/02/24 14:19 Patient unable to answer at this time (ie. confused, unrespo /Reproduction History /Reproductive History - refinery operator: /Reproductive Hx- refinery operator Hx Now No 11/02/24 14:19 Gestational Age (in weeks): EDC: Hx Hx Para Hx Section SAB No 11/02/24 14:19 Active Medications Active Medications: Current Medications Generic Name Dose Route Start Last Admin Trade Name Freq PRN Reason Stop Dose Admin Lactated Ringer's 1,000 mls @ 15 mls/hr 11/12/24 10:00 IV .Q48H PANKAJ PFSH Medical History Bladder disease High cholesterol Wears glasses History of steroid therapy Arthritis Heartburn Former smoker History of pain when walking History of stress test Interstitial cystitis Reactive cervical lymphadenopathy Enlargement of lymph node GERD (gastroesophageal reflux disease) Acne Home Medications ?Medication ?Instructions ?Recorded ?Last Taken ?Type cholecalciferol (vitamin D3) 25 50 mcg PO DAILY 02/04/20 04/29/24 History mcg (1,000 unit) capsule phenazopyridine 100 mg tablet 100 mg PO TID PRN Bladder Spasm 02/04/20 04/29/24 History (Pyridium) cyclobenzaprine 10 mg tablet 10 mg PO HS PRN MUSCLE SPASMS 05/21/22 04/29/24 History magnesium 250 mg tablet 250 mg PO DAILY 09/22/23 04/29/24 History berberine chloride 500 mg capsule mg PO 11/02/24 Unknown History estradiol 4 mcg vaginal insert 4 mcg vaginal .1-2 X WEEK 11/02/24 Unknown History Allergy/AdvReac Type Severity Reaction Status Date / Time albuterol (From Ventolin HFA) Allergy Mild unknown Verified 11/12/24 10:03 Penicillins Allergy Mild rash Verified 11/12/24 10:03 Family History Mother Diabetes Hypertension Thyroid disorder Colon polyps Father Colon polyps Surgical History Hx of colonoscopy with polypectomy History of carpal tunnel surgery of left wrist No significant past surgical history Social History household members: spouse and children 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
[2024-11-12] MEDS: Lactated Ringers 1,000 ML 15 ML IV (10:21)
--- NOTE | 2024-11-12 10:26 | RAD_ITS ---
PROCEDURE: FLUORO GUIDED NEEDLE PLACEMENT 11/12/2024 REASON FOR EXAM: LT SI JOINT STEROID INJECTION TECHNIQUE: FLUORO GUIDED NEEDLE PLACEMENT Fluoroscopy time: 18.9 seconds. Radiation dose: 3.94 mGy FINDINGS: 2 fluoroscopic spot images show needle approaching the left sacroiliac joint Other findings: Other: RAD/Fluoro Guided Needle Placement IMPRESSION: Fluoroscopy provided for left sacroiliac injection. For complete details, see the operative report. Reading Location: [facility]
[2024-11-12] MEDS: Lidocaine 1% (5 ml sdv) 5 ML Vial (10:36)
--- NOTE | 2024-11-12 10:46 | PCM.POST.ANE ---
Anesthesia: Postop Eval I Current Vital Signs Temperature: 97.5 F Pulse Rate: 73 Blood Pressure: 103/73 Respiratory Rate: 15 Pulse Ox: 95 Oxygen Delivery Method: Room Air Assessment Airway patent: Yes Spontaneous unlabored respirations: Yes Mental status: Awake and Calm nausea: No Vomiting: No Anesthesia Complication: No Fluid Hydration Crystalloid volume administer (ml): 200 Total IV fluid infused: 200 Progress Note Anesthesia document: Postop Eval 1 completed: Yes
--- NOTE | 2024-11-12 11:16 | OP.PCM_ITS ---
Operative Report (Standard) Operative Information Date of Procedure: 11/12/24 Pre-Operative Diagnosis: 1 Post-Operative Diagnosis: 1 Surgery/Procedure Performed: 1 training and development rep: No Type of Anesthesia: Local MAC RN Documented Start/Stop Times: Operation Date: 11/12/24 11:10 Case Time Into Pre-Op 11/12/24 09:48 Anesthesia Start 11/12/24 10:26 Into Room 11/12/24 10:26 Procedure Start 11/12/24 10:36 Procedure End 11/12/24 10:39 Anesthesia End 11/12/24 10:42 Out of Room 11/12/24 10:42 Into Recovery 11/12/24 10:43 Out of Recovery 11/12/24 10:56 Into Phase II Recovery 11/12/24 10:57 Out of Phase II 11/12/24 11:08 Procedure Start Time: 11:16 Procedure Stop Time: 11:17 Select all DRAINS/GRAFTS/IMPLANTS that apply: None Estimated Blood Loss: 1 Specimen collected: No Description of surgery: PREOPERATIVE DIAGNOSES: 1.Sacroiliitis. 2.Sacroiliac joint dysfunction. POSTOPERATIVE DIAGNOSES: 1.Sacroiliitis. 2.Sacroiliac joint dysfunction. PROCEDURE PERFORMED: Left-sided sacroiliac joint steroid injection under f luoroscopy guidance. ANESTHESIA: MAC. BLOOD LOSS: Minimal. COMPLICATIONS: None. DESCRIPTION OF PROCEDURE: History and physical of today was reviewed. Risks and benefits of the procedure were explained. The patient understood and agreed to the procedure. Informed consent was obtained. IV inserted per routine protocol. The patient was taken to the operating room and placed in the prone position with a pillow positioned underneath the abdomen. The left lower back and buttock area was prepped and draped in a sterile fashion using iodine x3. Under fluoroscopy guidance on an AP view, the left SI joint was visualized. The skin and subcutaneous tissue was anesthetized with approximately 3 mL of 1% lidocaine using a 25-gauge regular needle. Under direct visualization with fluoroscopy at approximately 15-degree angle, using a 22-gauge 3-1/2-inch spinal needle, the needle was advanced via the skin. The tip of the needle was maneuvered and directed towards the inferior one-third of the posterior SI joint. Once the tip of the needle was at the vicinity of the joint, after negative aspiration for blood or CSF, a total of 1 mL of contrast was injected to confirm correct placement of the needle as well as cephalocaudal spread. Confirmation was obtained on AP as well as oblique view. After repeated negative aspiration and confirmation, a total of 4 mL of preservative-free 0.25% Marcaine with 40 mg of Depo-Medrol was injected in and around the SI joint. The needle was then removed intact. The patient experienced no sign or symptoms of intrathecal or intravascular injection. The patient experienced no paresthesia. The procedure was completed without any apparent difficulty or any complications. The patient appeared to tolerate it well. ASSESSMENT AND PLAN: This is a 44-year-old female with sacroiliitis, sacroiliac joint dysfunction status post left-sided sacroiliac joint steroid injection under fluoroscopic guidance, patient will continue her current medications, patient will follow in approximately 2 weeks for reevaluation. Surgical Findings: 1 Complications Complications: No Admit VTE Documentation VTE Present on Admission: No VTE Mechan Device Prophylaxis: None VTE Pharm Prophylaxis ordered?: No
--- NOTE | 2024-11-12 14:10 | POSTOPAN2_ITS ---
Anesthesia Postop Eval I Sum Postop Eval Completion status Anesthesia document: Postop Eval 1 completed: Yes Anesthesia Postop Eval I Summary Anesthesia Postop Eval I Summary: Anesthesia Postop Eval I: Assessment Summary Airway patent Yes 11/12/24 10:47 [email or web address] Spontaneous unlabored Yes 11/12/24 10:47 [email or web address] [email or web address] respirations Mental status Awake,Calm 11/12/24 10:47 [email or web address] nausea No 11/12/24 10:47 [email or web address] Vomiting No 11/12/24 10:47 [email or web address] [email or web address] Anesthesia Postop Eval I: Fluid Summary Crystalloid volume administer 200 11/12/24 10:47 [email or web address] [email or web address] (ml) Colloids volume administered ( ml) Blood Product volume administered (ml) Total IV fluid infused 200 11/12/24 10:47 [email or web address] Anesthesia Postop Eval I: Summary Notes Anesthesia Complication No 11/12/24 10:47 [email or web address] Anesthesia Complication Comment: Post-operative progress note Anesthesia: Postop Eval II Evaluation Mental status: Awake and Calm Pain Level: 0 nausea: No Vomiting: No Complications Anesthesia Complication: No
--- NOTE | 2024-11-12 14:10 | PCM.POSTANE2 ---
Anesthesia Postop Eval I Sum Postop Eval Completion status Anesthesia document: Postop Eval 1 completed: Yes Anesthesia Postop Eval I Summary Anesthesia Postop Eval I Summary: Anesthesia Postop Eval I: Assessment Summary Airway patent Yes 11/12/24 10:47 [email or web address] Spontaneous unlabored Yes 11/12/24 10:47 [email or web address] respirations Mental status Awake,Calm 11/12/24 10:47 [email or web address] nausea No 11/12/24 10:47 [email or web address] Vomiting No 11/12/24 10:47 [email or web address] Anesthesia Postop Eval I: Fluid Summary Crystalloid volume administer 200 11/12/24 10:47 [email or web address] (ml) Colloids volume administered ( ml) Blood Product volume administered (ml) Total IV fluid infused 200 11/12/24 10:47 [email or web address] Anesthesia Postop Eval I: Summary Notes Anesthesia Complication No 11/12/24 10:47 [email or web address] Anesthesia Complication Comment: Post-operative progress note Anesthesia: Postop Eval II Evaluation Mental status: Awake and Calm Pain Level: 0 nausea: No Vomiting: No Complications Anesthesia Complication: No
== END 2024-11-12 11:08 | disposition home or self-care (01) ==
LOC: SDC 09:38 → AC 09:39
PROVIDERS: Anesthesiology; PCP Family Medicine; Referring Provider Anesthesiology Pain Medicine; Visit Provider Anesthesiology Pain Medicine
PROC: 3E0U3GC Introduction of Other Therapeutic Substance into Joints, Percutaneous Approach (ICD-10-PCS; CPT 27096; principal; 2024-11-12 11:05)
DX: M46.1 Sacroiliitis, not elsewhere classified (principal); E78.00 Pure hypercholesterolemia, unspecified; Z79.899 Other long term (current) drug therapy; Z87.891 Personal history of nicotine dependence
CPT/HCPCS: 27096; 76000; 77002; 81025